=== PATIENT | female | born 1990 | race Caucasian/White ===

== ENCOUNTER 2018-05-30 11:31 | Outpatient (CLI) | payer OTHER ==
--- NOTE | 2018-05-30 11:39 | NUR ---
pt ambulated to OB unit for Rhogam administration. order sent to blood bank.
--- NOTE | 2018-05-30 12:25 | NUR ---
RHOGAM INJECTION GIVEN, PT TOLERATED WELL.
--- NOTE | 2018-05-30 12:28 | NUR ---
PT DISCHARGED TO HOME, AMBULATED OFF UNIT, PT VERBALIZES UNDERSTANDING OF FOLLOW UP CARE AND INSTRUCTIONS. NO DISTRESS NOTED.
== END 2018-05-30 12:28 | disposition home or self-care (01) ==
LOC: WSo 11:31
PROVIDERS: ATTEND Obstetrics & Gynecology
DX: Z31.82 Encounter for Rh incompatibility status (principal)
CPT/HCPCS: 96372

== ENCOUNTER 2018-08-20 11:09 | Inpatient (IN) | payer OTHER | END 2018-08-22 12:00 | disposition home or self-care (01) | LOC: LDRP 11:09 ==

== ENCOUNTER 2021-05-20 19:33 | Observation (INO) | payer BC, OTHER ==
[~2021-05-20] VITALS: Ht 160.2 cm; Wt 66.1 kg
[~2021-05-20 19:33] MED LIST: DOCU-143 PO; ESOM10SU PO; IBUP-1780 PO; LORA10TA76 PO; OXYC1TAB87 PO; PREN1TAB79 PO
--- NOTE | 2021-05-20 19:56 | ED Abdominal Pain ---
General Chief Complaint: Abdominal/GI Problems Stated Complaint: UPPER ABD/BACK PAIN Source of Information: Patient Exam Limitations: No Limitations (TYRON VALIENTE APRN) History of Present Illness Date Seen by Provider: May 20, 2021 Time Seen by Provider: 19:54 Initial Comments To ER by private vehicle with reports of right upper quadrant abdominal pain that radiates straight through to her back associated with intermittent nausea. No fever no chills. Symptoms began on Monday of this week 05/17/2021. She has been taking yare-zmz-clsfcxr Tums, Gas-X, Tylenol without any improvement in symptoms. She finally went and saw [facility] walk-in clinic today and had an ultrasound done and states that she was told that her gallbladder was full of stones. She is 13 weeks gestation. Timing/Duration: 3-4 Days Severity/Quality: Moderate Location: RUQ Radiation: No Radiation Activities at Onset: None Associated Symptoms: Nausea/Vomiting (TYRON VALIENTE APRN) Allergies and Home Medications Allergies Coded Allergies: No Known Drug Allergies (Unverified , 05/22/21) Patient Home Medication List Home Medication List Reviewed: Yes (TYRON VALIENTE APRN) Vit W-Ca,Fe,FA(<1 mg) ( Vitamins) 1 Each Tablet, 1 EACH PO DAILY, (Reported) Entered as Reported by: MICHELLE MCGOVERN on 08/20/181209 Last Action: Reviewed Discontinued Medications Docusate Sodium (Colace) 100 Mg Capsule, 100 MG PO BID Discontinued Reason: No Longer Taking Prescribed by: CESAR ALVARADO on 08/20/18 1435 Last Action: Discontinued Esomeprazole Magnesium (Nexium) 10 Mg Suspdr.pkt, 10 MG PO DAILY, (Reported) Discontinued Reason: No Longer Taking Entered as Reported by: MICHELLE MCGOVERN on 08/20/18 1210 Last Action: Discontinued Ibuprofen (Ibuprofen) 800 Mg Tablet, 800 MG PO Q6H PRN for PAIN Discontinued Reason: No Longer Taking Prescribed by: CESAR ALVARADO on 08/20/18 1435 Last Action: Discontinued Loratadine (Claritin) 10 Mg Tablet, 10 MG PO DAILY, (Reported) Discontinued Reason: No Longer Taking Entered as Reported by: MICHELLE MCGOVERN on 08/20/18 1210 Last Action: Discontinued Oxycodone HCl/Acetaminophen (Percocet 5-325 mg Tablet) 1 Each Tablet, 1 TAB PO Q4H Discontinued Reason: No Longer Taking Prescribed by: CESAR ALVARADO on 08/20/18 0015 Last Action: Discontinued Review of Systems Review of Systems Constitutional: see HPI; No chills, No fever EENTM: No Symptoms Reported Respiratory: No Symptoms Reported Cardiovascular: No Symptoms Reported Gastrointestinal: See HPI, Abdominal Pain; Denies Diarrhea; Nausea; Denies Vomiting Genitourinary: No Symptoms Reported Musculoskeletal: no symptoms reported Skin: no symptoms reported Psychiatric/Neurological: No Symptoms Reported Endocrine: No Symptoms Reported Hematologic/Lymphatic: No Symptoms Reported (TYRON VALIENTE APRN) Past Kzmptfm-Yaqsfy-Quvgly Hx Immunizations Up To Date PED Vaccines UTD: Yes (TYRON VALIENTE APRN) Seasonal Allergies Seasonal Allergies: Yes (TYRON VALIENTE APRN) Past Medical History Surgeries: Yes ([place] Teeth) Respiratory: No Cardiac: No Neurological: No Female Reproductive Disorders: Denies Sexually Transmitted Disease: No HIV/AIDS: No Genitourinary: No Gastrointestinal: Yes Gastroesophageal Reflux Musculoskeletal: No Endocrine: No HEENT: No Loss of Vision: Denies Hearing Impairment: Denies Cancer: No Psychosocial: No Integumentary: No Blood Disorders: No Adverse Reaction/Blood Tranf: No (TYRON VALIENTE APRN) Family Medical History CABG Grandparents (Maternal Grandfather) Cardiovascular disease Grandparents (Maternal Grandfather) Cataracts Grandparents (Maternal Grandmother) Completed stroke Grandparents (Maternal and Paternal Grandmothers) DVT 19 MOTHER Dementia Grandparents (Paternal Grandmother) Diabetes mellitus Grandparents (Maternal Grandfather) Hypercholesterolemia Grandparents (Maternal Grandfather) Hypertension Grandparents (Maternal Grandfather) Myocardial infarction Grandparents (Maternal Grandfather) Osteoporosis Grandparents (Paternal Grandmother) Parkinson's disease Grandparents (Paternal Grandmother) Respiratory disorder Grandparents (Maternal Grandmother-COPD) Physical Exam Vital Signs Vital Signs - First Documented 05/20/21 19:45 Temp 36.2 Pulse 71 Resp 14 B/P (MAP) 129/75 (93) Pulse Ox 99 O2 Delivery Room Air (RIYA VAUGHN MD) Vital Signs Capillary Refill : (TYRON VALIENTE APRN) Height/Weight/BMI Height: 5'3.00" Weight: 179lbs. 2.0oz. 81.033178xz; 31.7 BMI Method: General Appearance: WD/WN, no apparent distress Neck: non-tender, full range of motion Respiratory: normal breath sounds, no respiratory distress, no accessory muscle use Cardiovascular: regular rate, rhythm, no murmur Gastrointestinal: normal bowel sounds, soft, tenderness Extremities: normal range of motion, non-tender Back: normal inspection Neurologic/Psychiatric: alert, normal mood/affect, oriented x 3 Skin: normal color, warm/dry (TYRON VALIENTE APRN) Progress/Results/Core Measures Results/Orders Lab Results Laboratory Tests Test 05/20/21 19:50 Range/Units White Blood Count 13.1 H 4.3-11.0 10^3/uL Red Blood Count 3.75 L 3.80-5.11 10^6/uL Hemoglobin 11.2 L 11.5-16.0 g/dL Hematocrit 33 L 35-52 % Mean Corpuscular Volume 87 80-99 fL Mean Corpuscular Hemoglobin 30 25-34 pg Mean Corpuscular Hemoglobin Concent 35 32-36 g/dL Red Cell Distribution Width 11.6 10.0-14.5 % Platelet Count 269 130-400 10^3/uL Mean Platelet Volume 10.6 9.0-12.2 fL Immature Granulocyte % (Auto) 1 % Neutrophils (%) (Auto) 73 42-75 % Lymphocytes (%) (Auto) 19 12-44 % Monocytes (%) (Auto) 6 0-12 % Eosinophils (%) (Auto) 2 0-10 % Basophils (%) (Auto) 0 0-10 % Neutrophils # (Auto) 9.5 H 1.8-7.8 10^3/uL Lymphocytes # (Auto) 2.4 1.0-4.0 10^3/uL Monocytes # (Auto) 0.8 0.0-1.0 10^3/uL Eosinophils # (Auto) 0.3 0.0-0.3 10^3/uL Basophils # (Auto) 0.0 0.0-0.1 10^3/uL Immature Granulocyte # (Auto) 0.1 0.0-0.1 10^3/uL Sodium Level 136 135-145 MMOL/L Potassium Level 3.7 3.6-5.0 MMOL/L Chloride Level 102 98-107 MMOL/L Carbon Dioxide Level 22 21-32 MMOL/L Anion Gap 12 5-14 MMOL/L Blood Urea Nitrogen 6 L 7-18 MG/DL Creatinine 0.75 0.60-1.30 MG/DL Estimat Glomerular Filtration Rate 109 BUN/Creatinine Ratio 8 Glucose Level 95 70-105 MG/DL Calcium Level 9.6 8.5-10.1 MG/DL Corrected Calcium 9.7 8.5-10.1 MG/DL Total Bilirubin 2.2 H 0.1-1.0 MG/DL Aspartate Amino Transf (AST/SGOT) 324 H 5-34 U/L Alanine Aminotransferase (ALT/SGPT) 565 H 0-55 U/L Alkaline Phosphatase 95 40-136 U/L Total Protein 7.1 6.4-8.2 GM/DL Albumin 3.9 3.2-4.5 GM/DL Lipase 42889 H 8-78 U/L (RIYA VAUGHN MD) Vital Signs/I&O 05/20/21 05/20/21 19:45 21:25 Temp 36.2 Pulse 71 57 Resp 14 14 B/P (MAP) 129/75 (93) 111/69 Pulse Ox 99 99 O2 Delivery Room Air Room Air (RIYA VAUGHN MD) Departure Communication (Admissions) 0-I spoke with Dr. Lewis, will admit hydrate clear liquids orally, nausea medicine and pain medication. We will repeat labs in the morning and get a ga llbladder ultrasound here since we do not have access to view the gallbladder ultrasound at [facility] outpatient earlier today. (TYRON VALIENTE APRN) Impression Primary Impression: Symptomatic cholelithiasis Disposition: HOME, SELF-CARE Condition: Stable Admissions Decision to Admit Reason: Admit from ER (General) Decision to Admit/Date: May 20, 2021 Time/Decision to Admit Time: 22:10 (TYRON VALIENTE APRN) Departure-Patient Inst. Referrals: [facility] (PCP/Family) Primary Care Physician ATTENDING PHYSICIAN NOTE: I was physically present as attending physician in the emergency department during the care of this patient, but I was not directly involved in the decision making or delivery of care for this patient. (RIYA VAUGHN MD) TYRON VALIENTE APRN May 20, 2021 19:56 RIYA VAUGHN MD May 22, 2021 18:05
[2021-05-20] MEDS ORDERED: fentaNYL INJ 100 MCG/2 ML AMP IVP ONE ×2 (20:00→21:30)
[2021-05-20] MEDS ORDERED: ONDANSETRON 4 MG/2 ML (SDV) Z0FRAN IVP ONE (20:00)
[2021-05-20] MEDS ORDERED: LACTATED RINGERS 1,000 ML IV SCH (20:00)
[2021-05-20 20:16] LABS: BASOPHILS % (AUTO) 0 % (0-10); EOSINOPHILS # (AUTO) 0.3 10^3/uL (0.0-0.3); EOSINOPHILS % (AUTO) 2 % (0-10); HEMATOCRIT 33 % (35-52); HEMOGLOBIN 11.2 g/dL (11.5-16.0); LYMPHOCYTES # (AUTO) 2.4 10^3/uL (1.0-4.0); LYMPHOCYTES % (AUTO) 19 % (12-44); MEAN CORPUSCULAR HEMOGLOBIN 30 pg (25-34); MEAN CORPUSCULAR HGB CONC 35 g/dL (32-36); MEAN CORPUSCULAR VOLUME 87 fL (80-99); MEAN PLATELET VOLUME 10.6 fL (9.0-12.2); MONOCYTES # (AUTO) 0.8 10^3/uL (0.0-1.0); MONOCYTES % (AUTO) 6 % (0-12); NEUTROPHILS # (AUTO) 9.5 10^3/uL (1.8-7.8); NEUTROPHILS % (AUTO) 73 % (42-75); PLATELET COUNT 269 10^3/uL (130-400); WHITE BLOOD COUNT 13.1 10^3/uL (4.3-11.0)
[2021-05-20 20:18] LABS: ALBUMIN 3.9 GM/DL (3.2-4.5)
[2021-05-20 20:19] LABS: CALCIUM 9.6 MG/DL (8.5-10.1)
[2021-05-20 20:21] LABS: TOTAL PROTEIN 7.1 GM/DL (6.4-8.2)
[2021-05-20 20:22] LABS: BILIRUBIN,TOTAL 2.2 MG/DL (0.1-1.0)
[2021-05-20 20:24] LABS: CREATININE SERUM 0.75 MG/DL (0.60-1.30)
[2021-05-20 20:47] LABS: POTASSIUM 3.7 MMOL/L (3.6-5.0)
[2021-05-20] MEDS ORDERED: cefTRIAXone 1 GM PRE-MIX 50 ML IV ONE (21:15)
[2021-05-20] MEDS ORDERED: fentaNYL INJ 100 MCG/2 ML AMP IV PRN (22:45)
[2021-05-20] MEDS ORDERED: ONDANSETRON 4 MG/2 ML (SDV) Z0FRAN IV PRN (22:45)
[2021-05-20 23:05] VITALS: BP 111/55
[2021-05-20] MEDS: LACTATED RINGERS 1,000 ML IV SCH (23:28)
[2021-05-21 04:38] VITALS: BP 104/69
[2021-05-21 05:50] LABS: BASOPHILS % (AUTO) 0 % (0-10); EOSINOPHILS # (AUTO) 0.3 10^3/uL (0.0-0.3); EOSINOPHILS % (AUTO) 4 % (0-10); HEMATOCRIT 28 % (35-52); HEMOGLOBIN 9.6 g/dL (11.5-16.0); LYMPHOCYTES # (AUTO) 1.7 10^3/uL (1.0-4.0); LYMPHOCYTES % (AUTO) 20 % (12-44); MEAN CORPUSCULAR HEMOGLOBIN 30 pg (25-34); MEAN CORPUSCULAR HGB CONC 35 g/dL (32-36); MEAN CORPUSCULAR VOLUME 87 fL (80-99); MEAN PLATELET VOLUME 10.7 fL (9.0-12.2); MONOCYTES # (AUTO) 0.5 10^3/uL (0.0-1.0); MONOCYTES % (AUTO) 6 % (0-12); NEUTROPHILS % (AUTO) 70 % (42-75); PLATELET COUNT 221 10^3/uL (130-400); WHITE BLOOD COUNT 8.5 10^3/uL (4.3-11.0)
[2021-05-21 06:11] LABS: ALBUMIN 3.1 GM/DL (3.2-4.5); BILIRUBIN,TOTAL 2.6 MG/DL (0.1-1.0); CALCIUM 8.5 MG/DL (8.5-10.1); CREATININE SERUM 0.66 MG/DL (0.60-1.30); POTASSIUM 3.5 MMOL/L (3.6-5.0); TOTAL PROTEIN 5.5 GM/DL (6.4-8.2)
[2021-05-21] MEDS: LACTATED RINGERS 1,000 ML IV SCH (07:46)
[2021-05-21 08:00] VITALS: BP 91/50
[2021-05-21] MEDS ORDERED: FLU QUADRIvalent (3YOA+) 60 mcg/0.5 ml 2021-22(AFLURIA) IM ONE (08:00)
--- NOTE | 2021-05-21 09:25 | Diagnostic Imaging Report ---
PROCEDURE: US Gallbladder. TECHNIQUE: Multiple real-time grayscale images were obtained over the right upper quadrant in various projections. INDICATION: Right upper quadrant pain Liver parenchyma is homogeneous with normal echotexture. The portal vein is patent with hepatopetal flow. The gallbladder wall is thickened. There are several stones in the gallbladder. Common duct is not dilated. The pancreas appears normal. Aorta and IVC appear normal. Right kidney measures 10.5 cm in length and appears normal. There is no ascites. IMPRESSION: Cholecystolithiasis with a thickened gallbladder wall. Dictated by: Dictated on workstation # [id number]
[2021-05-21] MEDS ORDERED: ACETAMINOPHEN 500 MG TAB (TYLENOL) PO PRN (09:45)
[2021-05-21 12:00] VITALS: BP 106/55
--- NOTE | 2021-05-21 12:09 | Consultation - Surgery ---
History of Present Illness History of Present Illness Patient Consulted On(neela/time) 05/21/21 12:00 Time Seen by Provider: 09:21 History of Present Illness Surgery asked to admit regarding Abdominal pain, cholelithiasis. HPI per ED: To ER by private vehicle with reports of right upper quadrant a bdominal pain that radiates straight through to her back associated with intermittent nausea. No fever no chills. Symptoms began on Monday of this week 05/17/2021. She has been taking wnei-ojg-dliegcs Tums, Gas-X, Tylenol without any improvement in symptoms. She finally went and saw [facility] walk-in clinic today and had an ultrasound done and states that she was told that her gallbladder was full of stones. She is 13 weeks gestation. When I spoke to pt this am she states she still has pain but it is better than yesterday. She states that she has been having this pain for at least 6 years, "but I always thought it was my heartburn". Usually it only lasted a couple hours at the most, but this time it hasn't gone away since Monday. At its worst it was 10 out of 10. Usually associated with fatty foods, "I gave up ground beef and that seemed to help, this time it happened aft er broccoli cheddar soup". She will be 14 weeks on Monday. Allergies and Home Medications Allergies Coded Allergies: No Known Drug Allergies (Unverified , 08/20/18) Patient Home Medication List Home Medication List Reviewed: Yes Vit W-Ca,Fe,FA(<1 mg) ( Vitamins) 1 Each Tablet, 1 EACH PO DAILY, (Reported) Entered as Reported by: MICHELLE MCGOVERN on 08/20/18 1210 Last Action: Reviewed Discontinued Medications Docusate Sodium (Colace) 100 Mg Capsule, 100 MG PO BID Discontinued Reason: No Longer Taking Prescribed by: CESAR ALVARADO on 08/20/18 1435 Last Action: Discontinued Esomeprazole Magnesium (Nexium) 10 Mg Suspdr.pkt, 10 MG PO DAILY, (Reported) Discontinued Reason: No Longer Taking Entered as Reported by: MICHELLE MCGOVERN on 08/20/18 1210 Last Action: Discontinued Ibuprofen (Ibuprofen) 800 Mg Tablet, 800 MG PO Q6H PRN for PAIN Discontinued Reason: No Longer Taking Prescribed by: CESAR ALVARADO on 08/20/18 1435 Last Action: Discontinued Loratadine (Claritin) 10 Mg Tablet, 10 MG PO DAILY, (Reported) Discontinued Reason: No Longer Taking Entered as Reported by: MICHELLE MCGOVERN on 08/20/18 1210 Last Action: Discontinued Oxycodone HCl/Acetaminophen (Percocet 5-325 mg Tablet) 1 Each Tablet, 1 TAB PO Q4H Discontinued Reason: No Longer Taking Prescribed by: CESAR ALVARADO on 08/20/18 1435 Last Action: Discontinued Past Xmanxqv-Unmitw-Goqcib Hx Patient Social History Smoking Status: Never a Smoker Recent Hopitalizations: No Alcohol Use?: No Have you traveled recently?: No Immunizations Up To Date PED Vaccines UTD: Yes Seasonal Allergies Seasonal Allergies: Yes Surgeries History of Surgeries: Yes ([place] Teeth) Respiratory History of Respiratory Disorde: No Cardiovascular History of Cardiac Disorders: No Neurological History of Neurological Disord: No Reproductive System Sexually Transmitted Disease: No HIV/AIDS: No Female Reproductive Disorders: Denies Genitourinary History of Genitourinary Disor: No Gastrointestinal History of Gastrointestinal Di: Yes Gastrointestinal Disorders: Gastroesophageal Reflux Musculoskeletal History of Musculoskeletal Dis: No Endocrine History of Endocrine Disorders: No HEENT History of HEENT Disorders: No Loss of Vision: Denies Hearing Impairment: Denies Cancer History of Cancer: No Psychosocial History of Psychiatric Problem: No Integumentary History of Skin or Integumenta: No Blood Transfusions History of Blood Disorders: No Adverse Reaction to a Blood Tr: No Family Medical History Significant Family History: CAD Over 55 Years Old, COPD, Diabetes Family Medial History: CABG Grandparents (Maternal Grandfather) Cardiovascular disease Grandparents (Maternal Grandfather) Cataracts Grandparents (Maternal Grandmother) Completed stroke Grandparents (Maternal and Paternal Grandmothers) DVT 19 MOTHER Dementia Grandparents (Paternal Grandmother) Diabetes mellitus Grandparents (Maternal Grandfather) Hypercholesterolemia Grandparents (Maternal Grandfather) Hypertension Grandparents (Maternal Grandfather) Myocardial infarction Grandparents (Maternal Grandfather) Osteoporosis Grandparents (Paternal Grandmother) Parkinson's disease Grandparents (Paternal Grandmother) Respiratory disorder Grandparents (Maternal Grandmother-COPD) Review of Systems-General Constitutional: No chills, No diaphoresis EENTM: No blurred vision, No double vision, No mouth swelling, No epistaxis Respiratory: No cough, No dyspnea on exertion Cardiovascular: No chest pain, No edema, No palpitations Gastrointestinal: abdominal pain, heartburn; No jaundice; nausea; No vomiting Genitourinary: No dysuria, No frequency, No hematuria Musculoskeletal: No joint pain, No joint swelling, No muscle pain Skin: No change in color, No change in hair/nails Psychiatric/Neurological: Denies Anxiety, Denies Depressed, Denies Seizure, Denies Tremors Physical Exam-General Problems Physical Exam Vital Signs Vital Signs - First Documented 05/20/21 19:45 Temp 36.2 Pulse 71 Resp 14 B/P (MAP) 129/75 (93) Pulse Ox 99 O2 Delivery Room Air Capillary Refill : Less Than 3 Seconds General Appearance: WD/WN, no apparent distress Eyes: Bilateral Eye PERRL, Bilateral Eye EOMI HEENT: pharynx normal; No scleral icterus (R), No scleral icterus (L) Neck: non-tender, full range of motion, supple Respiratory: chest non-tender, lungs clear, normal breath sounds, no respiratory distress, no accessory muscle use Cardiovascular: regular rate, rhythm, no murmur Gastrointestinal: soft, no organomegaly, tenderness (RUQ and epigastric) Rectal: deferred Back: no CVA tenderness, no vertebral tenderness Extremities: no pedal edema, no calf tenderness, normal capillary refill Neurologic/Psychiatric: media relations director II-XII nml as tested, no motor/sensory deficits, alert, normal mood/affect, oriented x 3 Skin: normal color, warm/dry Lymphatic: no adenopathy (neck, axilla or groin) Data Review Labs Laboratory Tests 05/20/21 19:50: White Blood Count 13.1H, Red Blood Count 3.75L, Hemoglobin 11.2L, Hematocrit 33L , Mean Corpuscular Volume 87, Mean Corpuscular Hemoglobin 30, Mean Corpuscular Hemoglobin Concent 35, Red Cell Distribution Width 11.6, Platelet Count 269, Mean Platelet Volume 10.6, Immature Granulocyte % (Auto) 1, Neutrophils (%) (Auto) 73, Lymphocytes (%) (Auto) 19, Monocytes (%) (Auto) 6, Eosinophils (%) (Auto) 2, Basophils (%) (Auto) 0, Neutrophils # (Auto) 9.5H, Lymphocytes # (Auto) 2.4, Monocytes # (Auto) 0.8, Eosinophils # (Auto) 0.3, Basophils # (Auto) 0.0, Immature Granulocyte # (Auto) 0.1, Sodium Level 136, Potassium Level 3.7, Chloride Level 102, Carbon Dioxide Level 22, Anion Gap 12, Blood Urea Nitrogen 6L, Creatinine 0.75, Estimat Glomerular Filtration Rate 109, BUN/Creatinine Ratio 8, Glucose Level 95, Calcium Level 9.6, Corrected Calcium 9.7, Total Bilirubin 2.2H, Aspartate Amino Transf (AST/SGOT) 324H, Alanine Aminotransferase (ALT/SGPT) 565H, Alkaline Phosphatase 95, Total Protein 7.1, Albumin 3.9, Lipase 13851A 05/21/21 05:30: White Blood Count 8.5, Red Blood Count 3.19L, Hemoglobin 9.6L, Hematocrit 28L, Mean Corpuscular Volume 87, Mean Corpuscular Hemoglobin 30, Mean Corpuscular Hemoglobin Concent 35, Red Cell Distribution Width 11.8, Platelet Count 221, Mean Platelet Volume 10.7, Immature Granulocyte % (Auto) 0, Neutrophils (%) (Auto) 70, Lymphocytes (%) (Auto) 20, Monocytes (%) (Auto) 6, Eosinophils (%) (Auto) 4, Basophils (%) (Auto) 0, Neutrophils # (Auto) 6.0, Lymphocytes # (Auto) 1.7, Monocytes # (Auto) 0.5, Eosinophils # (Auto) 0.3, Basophils # (Auto) 0.0, Immature Granulocyte # (Auto) 0.0 05/21/21 05:35: Sodium Level 137, Potassium Level 3.5L, Chloride Level 105, Carbon Dioxide Level 21, Anion Gap 11, Blood Urea Nitrogen 5L, Creatinine 0.66, Estimat Glomerular Filtration Rate 120, BUN/Creatinine Ratio 8, Glucose Level 84, Calcium Level 8.5, Corrected Calcium 9.2, Total Bilirubin 2.6H, Aspartate Amino Transf (AST/SGOT) 212H, Alanine Aminotransferase (ALT/SGPT) 476H, Alkaline Phosphatase 90, Total Protein 5.5L, Albumin 3.1L, Lipase 3530H Radiology Date of Exam:05/21/21 US GALLBLADDER [id number] PROCEDURE: US Gallbladder. TECHNIQUE: Multiple real-time grayscale images were obtained over the right upper quadrant in various projections. INDICATION: Right upper quadrant pain Liver parenchyma is homogeneous with normal echotexture. The portal vein is patent with hepatopetal flow. The gallbladder wall is thickened. There are several stones in the gallbladder. Common duct is not dilated. The pancreas appears normal. Aorta and IVC appear normal. Right kidney measures 10.5 cm in length and appears normal. There is no ascites. IMPRESSION: Cholecystolithiasis with a thickened gallbladder wall. Dictated by: Dictated on workstation # [id number] Dict: 05/21/2120 Trans: 05/21/21 1134 CVB [id number] Interpreted by: ROSITA MARTINEZ MD Electronically signed by: ROSITA MARTINEZ MD 05/21/21 1134 Assessment/Plan Assessment/Plan Assessment/Plan Acute Cholescystitis with Cholelithiasis with possible Choledochalithiasis Acute Pancreatitis - possibly secondary to above Elevated LFTs - could be due to above or I had a long discussion with the pt going over her findings, Labs and her US (which I reviewed myself). Her Lipase came down today as did most of her LFTs except Bilirubin which was slightly up. She is which complicates the situation. Ideally we would wait until after she gives or at least until she is in the second trimester. She is basically in the second trimester, but would probably wait until she is at least 14 weeks (which is Monday). I talked to her about risks of surgery during 1st and 3rd trimester, second trimester is the least "riskiest"; but that doesn't mean without risks. I asked her if she could wait until after she delivered and she said no; "pain has never been like this or lasted this long". I went over normal risks and complications of surgery with pt not limited to pain, bleeding, infection, scar, damage to bowel or bile duct and need for further procedure. We talked about placing lead shield over abdomen to shoot Cholangiogram and possible need for ERCP. We will start some clears to see if she can tolerate that without abdominal pain and if she can and since her Lipase came down; probably can send home and come in Monday to do this as outpt. Her other option would be to stay in the hospital until Monday. She wanted to try eating and then would be NPO after midnight on Monday to come in for surgery Monday. All questions answered to her satisfaction. VANIA DALAL DO May 21, 2021 12:09
--- NOTE | 2021-05-21 12:27 | Discharge Inst-Surgical ---
Discharge Inst-Surgical Depart Medication/Instructions New, Converted or Re-Newed RX: Other (Use Tylenol for pain) Patient Instructions NPO after midnight on Tuesday 05/23 for planned surgery on Wednesday 05/24. Please be at hospital at 10:30 am on Monday. Activity Activity as Tolerated: Yes Diet Discharge Diet: Avoid Fatty Foods, Low Fat/Low Cholesterol Diet After 24 Hours: Clear Liquid if Nauseous Symptoms to Report to Physicia: Appetite Changes, Fever Over 101 Degrees F, Heart Beat Irreg/Pounding, Shortness of Breath If Any Problems/Questions/Issu: Contact Your Physician, Go to Emergency Room Skin/Wound Care Infection Signs and Symptoms: Temperature Above 101 F VANIA DALAL DO May 21, 2021 12:27
[2021-05-24] MEDS ORDERED: ACHD5005 PO (11:04)
--- NOTE | 2021-05-31 10:35 | Physician Query-Final Dx ---
SABINA SIDHU 05/31/21 1035: Final Diagnosis Give Final Diagnosis Please give Final Diagnosis ADRIANA05/31/21 1433: ASBINA SIDHU May 31, 2021 10:35 ADRIANAAprMay 31, 2021 14:33
== END 2021-05-21 12:24 | disposition home or self-care (01) ==
LOC: EDUNIT# 19:33 → ER 19:38 → 4TH 22:00 → UNDOADMOB 22:00 → 4TH 22:30 → UNDODISOB 05-21 14:15
PROVIDERS: ADMIT Surgery; ATTEND Surgery
DX: K80.00 Calculus of gallbladder with acute cholecystitis without obstruction (principal); K85.90 Acute pancreatitis without necrosis or infection, unspecified; R79.89 Other specified abnormal findings of blood chemistry
CPT/HCPCS: 76705; 80053 ×2; 83690 ×2; 85025 ×2; 96361; 96365; 96375; 96376; 99284; G0378; 36415

== ENCOUNTER 2021-05-21 14:43 | Outpatient (CLI) | payer BC ==
[~2021-05-21] VITALS: Ht 157.5 cm; Wt 65.4 kg
[2021-05-24] MEDS ORDERED: ACHD5005 PO (11:04)
== END 2021-05-22 07:07 | disposition home or self-care (01) ==
LOC: PREOP 14:43
PROVIDERS: ATTEND Surgery
DX: Z01.818 Encounter for other preprocedural examination (principal)

== ENCOUNTER 2021-05-24 09:15 | Day surgery (SDC) | payer BC ==
[~2021-05-24] VITALS: Ht 157.5 cm; Wt 65.4 kg
[2021-05-24] VITALS (12 sets, daily range): BP systolic 107–116; BP diastolic 54–81
[2021-05-24] MEDS ORDERED: LIDOCAINE/EPI 1%-1:200,000 (XYLOCAINE) 30 ML VIAL ONE (09:28)
[2021-05-24] MEDS ORDERED: ceFAZolin 2 GM IV Premixed 50 ML IV ONE (09:30)
[2021-05-24] MEDS ORDERED: fentaNYL INJ 100 MCG/2 ML AMP ONE ×2 (09:51→11:19)
[2021-05-24] MEDS ORDERED: proPOfol 200 MG/20 ML (DIPRIVAN) VIAL IV ONE (09:51)
[2021-05-24] MEDS ORDERED: LIDOCAINE PF 2% 5 ML (XYLOCAINE) VIAL ONE (09:51)
[2021-05-24] MEDS ORDERED: ONDANSETRON 4 MG/2 ML (SDV) Z0FRAN ONE ×2 (09:51→12:40)
--- NOTE | 2021-05-24 09:55 | Progress Note-Pre Operative ---
Pre-Operative Progress Note H&P Reviewed The H&P was reviewed, patient examined and no changes noted. Time Seen by Provider: 09:52 Date H&P Reviewed: May 24, 2021 Time H&P Reviewed: 09:52 Pre-Operative Diagnosis: Awa/Awa possible choledochalithiasis VANIA DALAL DO May 24, 2021 09:55
[2021-05-24] MEDS: LACTATED RINGERS 1,000 ML IV PRN ×2 (10:10→10:31)
[2021-05-24] MEDS ORDERED: ROCURONIUM 50 MG/5 ML (ZEMURON) VIAL IV ONE (10:30)
[2021-05-24] MEDS ORDERED: SEVOFLURANE (ULTANE) 15 ML INHAL SOLN ONE (11:04)
[2021-05-24] MEDS ORDERED: ACHD5005 PO (11:04)
--- NOTE | 2021-05-24 11:04 | Progress Note-Post Operative ---
Post-Operative Progess Note Surgeon (s)/Cut Pressman (s) Surgeon VANIA DALAL DO Cut Pressman: Ketan Pre-Operative Diagnosis Awa/Awa possible choledochalithiasis Post-Operative Diagnosis Chronic Cholelithiasis with cholecystitis Procedure & Operative Findings Date of Procedure 05/24/21 Procedure Performed/Findings PROCEDURE: Laparoscopic cholecystectomy with intraoperative cholangiogram. COMPLICATIONS: None. PROCEDURE: The patient was taken to the operating suite and was prepped and draped in sterile fashion. We placed a lead apron above and below the patient; just below umbilicus. A surgical pause was performed. Just superior to the umbilicus, a 12 mm incision was made. Dissection was taken down to the fascia, which was then scored and grasped with a Grazyna and the abdomen was then entered. A 0 Vicryl suture was placed in a [id number] fashion and a Maki trocar was placed and secured. Pneumoperitoneum was achieved. A 5mm trochar place in the subxyphoid and 2 in the right upper quadrant. Then took picture of the gallbladder which looked a little red and of the Uterus. The gallbladder was then grasped at the fundus and taken in the superior direction. Next, grasped at Perales;s pouch and pulled inferior and laterally. The cystic duct and cystic artery were then dissected out. Clip was placed on the distal portion of the cystic duct which was then partially transected. An arrow catheter was inserted into the duct. The cholangiogram was then performed. No filing defects and contrast made its way into the duodenum. Catheter removed. Clips were placed on proximal portion of the cystic duct and then the duct was then transected. Clips were placed along the proximal and distal portion of the cystic artery which was then transected. Hook cautery was used to dissect the gallbladder from the gallbladder fossa achieving hemostasis. The gallbladder was placed in an Endobag and removed through the 12 mm trocar site. The abdomen was then reinspected. Copious amounts of irrigation were used to irrigate the abdomen and there were no signs of active bleeding. Hemostasis had been achieved. The 12 mm fascial defect was then closed with 0 Vicryl suture that had been placed in a [id number] fashion. The abdomen was then desufflated, the trocars were removed. The abdomen was then washed and dried. The skin was then closed using 4-0 Monocryl in a subcuticular fashion. The abdomen was washed and dried and Skin Affix was place over incisions. Patient tolerated the procedure well without any complications and was taken to the recovery room in stable condition. Dr. Aceves assisted on this case helping to make incisions, close incisions, identify anatomy and hold anatomy out of the way. Anesthesia Type GET Estimated Blood Loss Estimated blood loss (mL): scant Specimens/Packing Specimens Removed GB and contents VANIA DALAL DO May 24, 2021 11:04
--- NOTE | 2021-05-24 11:06 | Discharge Inst-Surgical ---
Discharge Inst-Surgical Depart Medication/Instructions New, Converted or Re-Newed RX: Transmitted to Pharmacy Patient Instructions Follow up Appt: Make appointment for 1 week. [phone] Instructions: No lifting greater than 20 pounds. No strenuous activity. May shower in 24 hours, no tub bath or soaking. Use incentive spirometer at home as directed. No Smoking Skin/Wound Care: May remove bandages in am. You need to leave the Dermabond on incision it will fall off on it's own. Symptoms to Report: Appetite Changes, Extremity Discoloration, Numbness/Tingling, Swelling Increased, Bleeding Excessive, Eyesight Changes, Pain Increased, Urine Color Change, Constipation(Persistent), Fever over 101 degree F, Pain/Pressure in chest, Urinating Difficulty, Cough Up/Vomit Blood, Heart Beat Irreg/Pounding, Pain/Pressure in jaw, Cramps in feet or legs, Lightheadedness, Pain/Pressure in shoulder, Diarrhea(Persistent), Memory Changes Suddenly, Questions/Concerns, Weight gain consecutive days, Dizziness/Fainting, Nausea/Vomiting, Shortness of Breath, Weight gain over 2 pounds If questions or concerns contact your physician Or seek help at emergency department. Activity Activity as Tolerated: Yes Activity Instructions: Avoid Stress to Incision Driving Instructions: No Driving/Refer to Diet Discharge Diet: Avoid Fatty Foods, Low Fat/Low Cholesterol Diet After 24 Hours: Clear Liquid if Nauseous If Any Problems/Questions/Issu: Contact Your Physician, Go to Emergency Room Skin/Wound Care Infection Signs and Symptoms: Increased Redness, Foul Odor of Wound, Increased Drainage, Skin Itchy or Has a Rash, Increased Swelling, Temperature Above 101 F Wound Care Comment: Heating pad to shoulder or neck tonight for pain Bathing Instructions: Shower Stitches/[place]/Dermabond Dis: Dermabond Ice Pack: Ice On and Off Site (as needed for pain) VANIA DALAL DO May 24, 2021 11:06
[2021-05-24] MEDS ORDERED: fentaNYL INJ 100 MCG/2 ML AMP IVP ONE (11:15)
[2021-05-24] MEDS ORDERED: ONDANSETRON 4 MG/2 ML (SDV) Z0FRAN IVP PRN (11:15)
[2021-05-24] MEDS ORDERED: ONDANSETRON 4 MG/2 ML (SDV) Z0FRAN IVP ONE (12:45)
--- NOTE | 2021-05-24 13:24 | Diagnostic Imaging Report ---
INDICATION: Fluoroscopy during intraoperative cholangiogram. Fluoroscopy was provided in the OR during intraoperative cholangiogram. 11 seconds of four-story time was utilized. 52 images were obtained. Images demonstrate contrast being injected via the cystic duct remnant. The visualized intrahepatic and extrahepatic bile ducts are normal caliber. No filling defects are seen to suggest retained stone. There is contrast flowing into the duodenum. IMPRESSION: Fluoroscopy during intraoperative cholangiogram. Dictated by: Dictated on workstation # [id number]
[2021-05-25] MEDS ORDERED: ACHD5005 PO (11:51)
== END 2021-05-24 14:06 | disposition home or self-care (01) ==
LOC: SDC 09:15
PROVIDERS: ATTEND Surgery
DX: K80.12 Calculus of gallbladder with acute and chronic cholecystitis without obstruction (principal); K85.90 Acute pancreatitis without necrosis or infection, unspecified; R79.89 Other specified abnormal findings of blood chemistry
CPT/HCPCS: 76000; 87081; 88304

== ENCOUNTER 2021-05-24 23:37 | Inpatient (IN) | payer BC ==
[~2021-05-24] VITALS: Ht 160 cm; Wt 69.1 kg
[~2021-05-24 23:37] MED LIST changes: +ACHD5005 PO
--- NOTE | 2021-05-24 23:53 | ED Syncope ---
General Stated Complaint: SYNCOPE Source of Information: Patient, EMS Exam Limitations: No Limitations History of Present Illness Date Seen by Provider: May 24, 2021 Time Seen by Provider: 23:31 Initial Comments Patient to ER by EMS from home with chief complaint that she had a syncopal episode. Blood pressure 77/40 on EMS arrival. The end established an IV and started a liter of fluids at about 300 and by the time they arrived to the ER. Patient has been having problems with biliary colic recently and was scheduled by Dr. Dalal today for an outpatient cholecystectomy. She was doing well and when she went home her family was helping her out of the car and that is when she passed out. She took a hydrocodone 5 x 325 3-1/2 hours ago. No nausea fevers chills dysuria. She has never had abdominal surgery before. She is a at 14 weeks and [address] Mejia. [facility] for primary care. No other significant medical history. No history of vasovagal syncopes. No fevers chil ls cough shortness of air. No problems with the thus far. She has not passed any gas or bowel movement today since the surgery. Rates her pain as a 4 out of 10, tolerable as long as she lay still. Family said that they witnessed when she passed out she had about 7 to 10 seconds of thrashing about seizure-like activity. She does not have a history of epilepsy. Allergies and Home Medications Allergies Coded Allergies: No Known Drug Allergies (Unverified , 05/22/21) Patient Home Medication List Home Medication List Reviewed: Yes Hydrocodone/Acetaminophen (Hydrocodone-Acetamin 5-325 mg) 1 Each Tablet, 1 EA PO Q8H PRN for PAIN-MODERATE (5-7), (Reported) Entered as Reported by: SHYLA RODRIGUES on 05/25/21 1151 Last Action: Reviewed Vit W-Ca,Fe,FA(<1 mg) ( Vitamins) 1 Each Tablet, 1 EACH PO DAILY, (Reported) Entered as Reported by: MICHELLE MCGOVERN on 08/20/18 1210 Last Action: Reviewed Discontinued Medications Hydrocodone Bit/Acetaminophen (HYDROcodone/APAP 5 MG/325 MG TAB) 1 Tab Tab, 1 TAB PO Q8H PRN for PAIN-MODERATE (5-7) Discontinued Reason: No Longer Taking Prescribed by: VANIA DALAL on 05/24/21 1105 Last Action: Discontinued Review of Systems Constitutional: No chills, No diaphoresis EENTM: No ear pain, No eye pain Respiratory: No cough, No phlegm Cardiovascular: No chest pain, No palpitations Gastrointestinal: abdominal pain; No constipation, No diarrhea, No nausea, No vomiting Genitourinary: No discharge, No dysuria, No frequency, No hematuria : Yes Expected Date of Delivery: Nov 21, 2021 Control/STD Prophylaxis: None Musculoskeletal: No back pain, No joint pain Past [id number]-[id number]-Supzmf Hx Patient Social History Tobacco Use?: No Use of E-Cig and/or Vaping dev: No Substance use?: No Alcohol Use?: No Immunizations Up To Date PED Vaccines UTD: Yes First/Initial COVID19 Vaccinat: 08/12 Second COVID19 Vaccination Ortiz: 09/11 Third COVID19 Vaccination Date: 05/15 Seasonal Allergies Seasonal Allergies: Yes Past Medical History Surgery/Hospitalization HX: Denies Surgeries: Yes ([facility]) Respiratory: No Currently Using CPAP: No Currently Using BIPAP: No Cardiac: No Neurological: No Female Reproductive Disorders: Denies Sexually Transmitted Disease: No HIV/AIDS: No Genitourinary: No Gastrointestinal: Yes Gastroesophageal Reflux Musculoskeletal: No Endocrine: No HEENT: No Loss of Vision: Denies Hearing Impairment: Denies Cancer: No Psychosocial: No Integumentary: No Blood Disorders: No Adverse Reaction/Blood Tranf: No Family Medical History CABG Grandparents (Maternal Grandfather) Cardiovascular disease Grandparents (Maternal Grandfather) Cataracts Grandparents (Maternal Grandmother) Completed stroke Grandparents (Maternal and Paternal Grandmothers) DVT 19 MOTHER Dementia Grandparents (Paternal Grandmother) Diabetes mellitus Grandparents (Maternal Grandfather) Hypercholesterolemia Grandparents (Maternal Grandfather) Hypertension Grandparents (Maternal Grandfather) Myocardial infarction Grandparents (Maternal Grandfather) Osteoporosis Grandparents (Paternal Grandmother) Parkinson's disease Grandparents (Paternal Grandmother) Respiratory disorder Grandparents (Maternal Grandmother-COPD) CAD Over 55 Years Old, COPD, Diabetes Physical Exam Vital Signs Vital Signs - First Documented 05/24/21 23:38 Temp 37.2 Pulse 97 Resp 18 B/P (MAP) 100/59 (73) Pulse Ox 100 O2 Delivery Room Air Capillary Refill : Height, Weight, BMI Height: 5'3.00" Weight: 179lbs. 2.0oz. 81.987801qv; 26.36 BMI Method: General Appearance: WD/WN, Moderate Distress HEENT: PERRL/EOMI, TMs Normal, Normal ENT Inspection, Pharynx Normal; No Moist Mucous Membranes Neck: Full Range of Motion, Normal Inspection Cardiovascular: Regular Rate, Rhythm, No Edema, Normal Peripheral Pulses Respiratory: Lungs Clear, Normal Breath Sounds, No Accessory Muscle Use, No Respiratory Distress Gastrointestinal: Normal Bowel Sounds, No Organomegaly, Soft Extremities: Normal Capillary Refill, Normal Inspection, No Pedal Edema Neurologic/Psychiatric: Alert, Oriented x3, Normal Mood/Affect Cranial Nerves: Normal Hearing, Normal Speech, PERRL Skin: Normal Color, Warm/Dry Focused Exam Lactate Level 05/24/21 23:59: Lactic Acid Level 4.12*H Lactic Acid Level Laboratory Tests Test 05/24/21 23:59 Lactic Acid Level 4.12 MMOL/L (0.50-2.00) *H Progress/Results/Core Measures Results/Orders Lab Results Laboratory Tests Test 05/24/21 23:46 05/24/21 23:59 Range/Units White Blood Count 33.5 *H 4.3-11.0 10^3/uL Red Blood Count 2.86 L 3.80-5.11 10^6/uL Hemoglobin 8.7 L 11.5-16.0 g/dL Hematocrit 26 L 35-52 % Mean Corpuscular Volume 91 80-99 fL Mean Corpuscular Hemoglobin 30 25-34 pg Mean Corpuscular Hemoglobin Concent 34 32-36 g/dL Red Cell Distribution Width 11.9 10.0-14.5 % Platelet Count 303 130-400 10^3/uL Mean Platelet Volume 11.4 9.0-12.2 fL Immature Granulocyte % (Auto) 1 % Neutrophils (%) (Auto) 89 H 42-75 % Lymphocytes (%) (Auto) 7 L 12-44 % Monocytes (%) (Auto) 3 0-12 % Eosinophils (%) (Auto) 0 0-10 % Basophils (%) (Auto) 0 0-10 % Neutrophils # (Auto) 29.9 H 1.8-7.8 10^3/uL Lymphocytes # (Auto) 2.4 1.0-4.0 10^3/uL Monocytes # (Auto) 0.8 0.0-1.0 10^3/uL Eosinophils # (Auto) 0.0 0.0-0.3 10^3/uL Basophils # (Auto) 0.1 0.0-0.1 10^3/uL Immature Granulocyte # (Auto) 0.3 H 0.0-0.1 10^3/uL Neutrophils % (Manual) 82 % Lymphocytes % (Manual) 9 % Monocytes % (Manual) 1 % Band Neutrophils 5 % Atypical Lymphocytes 3 % Clumped Platelets MODERATE Blood Morphology Comment NORMAL Sodium Level 134 L 135-145 MMOL/L Potassium Level 3.9 3.6-5.0 MMOL/L Chloride Level 105 98-107 MMOL/L Carbon Dioxide Level 16 L 21-32 MMOL/L Anion Gap 13 5-14 MMOL/L Blood Urea Nitrogen 5 L 7-18 MG/DL Creatinine 0.76 0.60-1.30 MG/DL Estimat Glomerular Filtration Rate 107 BUN/Creatinine Ratio 7 Glucose Level 241 H 70-105 MG/DL Calcium Level 8.0 L 8.5-10.1 MG/DL Corrected Calcium 8.6 8.5-10.1 MG/DL Magnesium Level 1.8 1.6-2.4 MG/DL Total Bilirubin 0.4 0.1-1.0 MG/DL Aspartate Amino Transf (AST/SGOT) 46 H 5-34 U/L Alanine Aminotransferase (ALT/SGPT) 180 H 0-55 U/L Alkaline Phosphatase 94 40-136 U/L Troponin I < 0.028 <0.028 NG/ML C-Reactive Protein High Sensitivity 0.25 0.00-0.50 MG/DL B-Type Natriuretic Peptide 91.8 <100.0 PG/ML Total Protein 5.9 L 6.4-8.2 GM/DL Albumin 3.2 3.2-4.5 GM/DL Procalcitonin 0.02 <0.10 NG/ML Lactic Acid Level 4.12 *H 0.50-2.00 MMOL/L Micro Results Microbiology 05/25/21 Blood Culture - Preliminary, Resulted No growth 05/24/21 Blood Culture - Preliminary, Resulted No growth My Orders Orders - RAMO NASH Cbc With Automated Diff (05/24/21 23:44) Comprehensive Metabolic Panel (05/24/21 23:44) Ua Culture If Indicated (05/24/21 23:44) Ekg Tracing (05/24/21 23:46) Continuous Ekg Monitoring (05/24/21 23:46) Troponin I Gates (05/24/21 23:46) Bnp Gates (05/24/21 23:46) Manual Differential (05/24/21 23:46) Lactic Acid Analyzer (05/24/21 23:58) Blood Culture (05/24/21 23:58) Piperacillin Sodium/Tazobactam (Zosyn Vi (05/25/21 00:15) Hs C Reactive Protein (05/24/21 23:46) Magnesium (05/24/21 23:46) Procalcitonin (Pct) (05/24/21 23:46) Ed Iv/Invasive Line Start (05/25/21 00:33) Ns Iv 1000 Ml (Sodium Chloride 0.9%) (05/25/21 00:45) Medications Given in ED Vital Signs/I&O 05/24/21 05/25/21 23:38 00:34 Temp 37.2 Pulse 97 87 109 118 Resp 18 B/P (MAP) 100/59 (73) 89/60 (70) 85/37 (53) 64/34 (44) Pulse Ox 100 O2 Delivery Room Air Progress Progress Note #1: Time: 23:53 Progress Note The family is concerned that she may have had a seizure however it was so short- lived and it came after her syncopal episode it seems more likely that she is having just some full body motions related to syncope. Her blood pressure is low which would explain the syncope. Will let her get her liter of fluids and then do a set of orthostatic vital signs. We will check for signs of infection. We will then consult with Dr. Dalal. Patient declined anything for pain at this time. Pain medication may also lower her syncopal threshold. Differential includes dehydration, exsanguination, vasovagal, pain etc. Progress Note #2: Time: 01:13 Progress Note Staff is trying to get the patient up to go to the bathroom because she needed to urinate urgently and as soon as she stood up her pressure tanked to 60/30 and she had a syncopal episode. Put her in Trendelenburg and initiated a second IV in her right AC 18-gauge and initiated a second liter of fluids for a total of 30 mL/kg. Her lactate is elevated. Zosyn was ordered. We will do a straight catheter urine looking for infection. Bedside ultrasound was unable to reveal any fluid and around the kidneys, pouch of Kee or Angelo's. Communicated again with Dr. Dalal and he states if she has another syncopal episode get a CT of her upper abdomen. Otherwise he is okay to admit the patient to the ICU with eICU consult. We will get all her fluids and and start her on some Zosyn. Progress Note #3: Time: 01:54 Progress Note Discussed the case with radiology and they highly recommend against a CT angiogram. She is not having hemoptysis cough shortness of air or chest pain. No evidence of DVT. We discussed doing a nuclear medicine scan first thing in the morning with the patient and she is okay with this. Ultrasound is going to come in and do a abdominal ultrasound to examine ducts and look for free fluid. We discussed doing a prophylactic dose of Lovenox now but she is not having any symptoms and has a potential for a bleed in the abdomen we will hold off blood thinners until the nuclear medicine scan unless her symptoms change. She states that her pain is starting to return so we will give her 25 mcg of fentanyl. Current blood pressure 105/68. She is out of Trendelenburg position. Her 30 mL/kg fluid boluses almost done. We will continue her for a liter at 250 mL an hour. Half-normal saline. Progress Note #4: Time: 02:34 Progress Note Discussed ultrasound results with Dr. Dalal. Blood pressure 100/57 after 30 mils per cake. 250 cc an hour for 1 L then will put her on half-normal saline with potassium at 150 an hour, 1-1/2 times maintenance fluids. Again discussed laparoscopic exploration and he feels anything less than 500 is acceptable and normal after a surgery. Repeat lactate down to 3.1. Continue Zosyn. Initial ECG Impression Date: May 24, 2021 Initial ECG Impression Time: 23:52 Initial ECG Rate: 87 Initial ECG Rhythm: Normal Sinus Initial ECG Intervals: Normal Initial ECG Impression: Normal Initial ECG Comparisson: No Previous ECG Available Comment Normal sinus rhythm without clinically relevant ST changes Diagnostic Imaging Diagonstic Imaging: Ultrasound Plain Films/CT/US/NM/MRI: abdomen Comments Uterus is in free fluid 150 to 200 cc. Moderate amount of free fluid seen in the pelvis. [facility] [place], [place] NAME: JORGE MCGILL [facility] REC#: [id number] PT STATUS: ADM IN : 1990 PHYSICIAN: RAMO NASH MD ADMIT DATE: 05/25/21/ICU Signed Date of Exam:05/25/21 US ABDOMEN LIMITED [id number] EXAM: RIGHT UPPER QUADRANT ULTRASOUND DATE: May 25, 2021. COMPARISON: Right upper quadrant ultrasound May 21, 2021. INDICATION: 30-year-old female, status post cholecystectomy. Sepsis. PROCEDURE: Two-dimensional grayscale and color doppler ultrasound examination of the right upper quadrant is performed. FINDINGS: The liver is unremarkable in size and contour. There is no demonstrated liver lesion. The gallbladder is surgically absent. There is a small amount of hypoechogenicity in the region of the gallbladder fossa which may relate to fluid. There is no demonstrated intrahepatic bile duct dilation. The common bile duct measures 6 mm in diameter. There is free pelvic fluid. The patient appears to potentially be based on provided images 39, 40, and 41. The fetus is not well evaluated. IMPRESSION: 1. The patient appears to potentially be . The potential fetus is not well evaluated. Recommend correlation. 2. Free pelvic fluid. 3. Small amount of probable fluid in the gallbladder fossa status post cholecystectomy. 4. No biliary ductal dilation. Dictated by: Dictated on workstation # [id number] Dict: 05/25/21621 Trans: 05/25/2137 [facility] [id number] Interpreted by: ANNA MARTIN MD Electronically signed by: ANNA MARTIN MD 05/25/21 0737 Reviewed: Reviewed by Me Departure Communication (Admissions) Time/Spoke to Admitting Phy: 00:59 Discussed the case with Dr. Taylor and he recommends if she has more syncopal episodes then to get a CT of the abdomen. We discussed the bedside ultrasound findings. He agrees with Edisn. Consult eICU Time/Spoke to Consulting Phy: 01:20 Discussed the case with Shila Chong and he agrees with Zosyn fluids. Patient's not on pressors right now and has a decent blood pressure of 105/56. He recommends looking for pulmonary embolisms as the risk is very high. CT her chest and abdomen as well. Discussed the case with Dr. Nassar communications editor for Dr. Mejia. He agrees with the plan to scan for pulmonary embolisms and abdomen with IV contrast. Use a lead shield and he will pass the case back to Dr. Mejia in the morning. Impression Primary Impression: Septic shock Additional Impression: Status post laparoscopic cholecystectomy Disposition: ADMITTED INPATIENT Condition: Critical Admissions Decision to Admit Reason: Admit from ER (General) Decision to Admit/Date: May 25, 2021 Time/Decision to Admit Time: 01:00 Departure-Patient Inst. Referrals: [facility] (PCP/Family) Primary Care Physician RAMO NASH May 24, 2021 23:53
[2021-05-24 23:56] LABS: BASOPHILS # (AUTO) 0.1 10^3/uL (0.0-0.1); BASOPHILS % (AUTO) 0 % (0-10); EOSINOPHILS % (AUTO) 0 % (0-10); HEMATOCRIT 26 % (35-52); HEMOGLOBIN 8.7 g/dL (11.5-16.0); LYMPHOCYTES # (AUTO) 2.4 10^3/uL (1.0-4.0); LYMPHOCYTES % (AUTO) 7 % (12-44); MEAN CORPUSCULAR HEMOGLOBIN 30 pg (25-34); MEAN CORPUSCULAR HGB CONC 34 g/dL (32-36); MEAN CORPUSCULAR VOLUME 91 fL (80-99); MEAN PLATELET VOLUME 11.4 fL (9.0-12.2); MONOCYTES # (AUTO) 0.8 10^3/uL (0.0-1.0); MONOCYTES % (AUTO) 3 % (0-12); NEUTROPHILS # (AUTO) 29.9 10^3/uL (1.8-7.8); NEUTROPHILS % (AUTO) 89 % (42-75); PLATELET COUNT 303 10^3/uL (130-400)
[2021-05-24 23:57] LABS: WHITE BLOOD COUNT 33.5 10^3/uL (4.3-11.0)
[2021-05-25] VITALS (7 sets, daily range): BP systolic 64–111; BP diastolic 34–68
[2021-05-25 00:06] LABS: ALBUMIN 3.2 GM/DL (3.2-4.5)
[2021-05-25 00:07] LABS: CHLORIDE 105 MMOL/L (98-107); POTASSIUM 3.9 MMOL/L (3.6-5.0); SODIUM 134 MMOL/L (135-145)
[2021-05-25 00:08] LABS: GLUCOSE 241 MG/DL (70-105); TOTAL PROTEIN 5.9 GM/DL (6.4-8.2)
[2021-05-25 00:09] LABS: CARBON DIOXIDE 16 MMOL/L (21-32)
[2021-05-25 00:10] LABS: BILIRUBIN,TOTAL 0.4 MG/DL (0.1-1.0)
[2021-05-25 00:12] LABS: ALKALINE PHOSPHATASE 94 U/L (40-136); CREATININE SERUM 0.76 MG/DL (0.60-1.30); GFR ESTIMATED 107
[2021-05-25 00:13] LABS: BUN/CREATININE RATIO 7
[2021-05-25 00:15] LABS: ALANINE AMINOTRANSFERASE 180 U/L (0-55)
[2021-05-25] MEDS ORDERED: PIPERACILLIN SODIUM/TAZOBACTAM 4.5 GM in NS (IVPB) 100 ML IV ONE (00:15)
[2021-05-25 00:29] LABS: ATYPICAL LYMPHOCYTES 3 %; BAND NEUTROPHILS 5 %; LYMPHOCYTES % (MANUAL) 9 %; MONOCYTES % (MANUAL) 1 %; NEUTROPHILS % (MANUAL) 82 %
[2021-05-25 00:30] LABS: PLATELET CLUMPS MODERATE; RBC MORPH NORMAL
[2021-05-25 00:33] LABS: MAGNESIUM 1.8 MG/DL (1.6-2.4)
[2021-05-25] MEDS ORDERED: NS IV 1000 ML 1,000 ML IV SCH (00:45)
[2021-05-25] MEDS ORDERED: 1/2 NS IV SOLUTION 1,000 ML IV ONE ×2 (02:00→14:44)
[2021-05-25] MEDS ORDERED: fentaNYL INJ 100 MCG/2 ML AMP IVP ONE (02:00)
[2021-05-25 02:02] LABS: BILIRUBIN,URINE NEGATIVE (NEGATIVE); CLARITY,URINE CLEAR; COLOR,URINE YELLOW; GLUCOSE, URINE (UA) NEGATIVE (NEGATIVE); KETONES,URINE NEGATIVE (NEGATIVE); LEUKOCYTE ESTERASE ,URINE 2+ (NEGATIVE); NITRITE,URINE NEGATIVE (NEGATIVE); PROTEIN,URINE TRACE (NEGATIVE)
[2021-05-25 02:15] LABS: BACTERIA,URINE LARGE /HPF; RBC,URINE 0-2 /HPF; WBC,URINE 25-50 /HPF
--- NOTE | 2021-05-25 03:32 | Tele-ICU Consult ---
History of Present Illness History of Present Illness Date Seen by Provider: May 25, 2021 Time Seen by Provider: 01:48 Date of Admission This virtual visit was conducted using real time audio/video. Thank you for asking us to see this patient for syncopal episode at home. Brief 7-10 second seizure. Had lap choly 05/24 AM. Recent events: 2nd syncope in ER when she stood up. PMH: . SH: smoking history: No FH: Non-contributory ROS: as in HPI PE: VSS. 105/60 following bolus. O2 sat 100% on RA HEENT: No obvious masses, adenopathy or JVD. Chest: clear to auscultation. CV: RRR S1 S2 No murmur or added sounds. Abd: Non-tender. Bowel sounds Y. : Unremarkable. Oconnell N. [employer]/psychiatric: Grossly intact. No obvious focal findings. Extremities: No edema. Capillary refill < 3 seconds. Skin: unremarkable. Results: Elevated WCC 33.5. Lactate decreasing 3.17. . Decreased Na 134, Hb 8.7. 2+ Leuk. Esterase in urine. US abd unremarkable. Available chart/ vitals / labs / images reviewed. Video assessment done using teleICU camera, rest of exam as per RN. A/P: Probable urosepsis. Critical Care: critically ill patient. Cont. Zosyn. Radiology do not want CTAC, will do V/Q this AM. Surgery does not want empiric Lovenox with recent surgery. Discussed w ER . Discussed with NANCY Gaytan. Asked RN to reach out to eICU if any questions or concerns later. Time spent with patient/coordination of care with other health professionals (mins):25 Allergies and Home Medications Allergies Coded Allergies: No Known Drug Allergies (Unverified , 05/22/21) Home Medications Hydrocodone Bit/Acetaminophen 1 Tab Tab, 1 TAB PO Q8H PRN for PAIN-MODERATE (5- 7) Prescribed by: VANIA DALAL on 05/24/21 1105 Vit W-Ca,Fe,FA(<1 mg) 1 Each Tablet, 1 EACH PO DAILY, (Reported) Past Medical/Social/Family Hx Patient Social History Tobacco Use?: No Use of E-Cig and/or Vaping dev: No Substance use?: No Alcohol Use?: No Pt stated abuse/neglect: No Immunizations Up To Date Influenza Vaccine Up-to-Date: No; Not Current First/Initial COVID19 Vaccinat: 08/12 Second COVID19 Vaccination Ortiz: 09/11 Tetanus Booster (TDap): Less Than 5 Years Hepatitis A: Yes Hepatitis B: Yes TB Skin Test: None Current Status status: Yes Communicates: Verbally Primary Language: Namibian Preferred Spoken Language: Namibian Is interpretation needed?: No Review of Systems Constitutional: see HPI EENTM: see HPI Respiratory: see HPI Gastrointestinal: see HPI Genitourinary: see HPI Musculoskeletal: see HPI Skin: see HPI Psychiatric/Neurological: See HPI All Other Systems Reviewed Negative Unless Noted: Yes Focused Exam Lactate Level 05/24/21 23:59: Lactic Acid Level 4.12*H 05/25/21 02:12: Lactic Acid Level 3.17*H Height, Weight, BMI Height: 5'3.00" Weight: 179lbs. 2.0oz. 81.320080hv; 25.00 BMI Method: Lactic Acid Level Laboratory Tests Test 05/24/21 23:59 05/25/21 02:12 Lactic Acid Level 4.12 MMOL/L (0.50-2.00) *H 3.17 MMOL/L (0.50-2.00) *H Exam Exam Patient acknowledged, consented, and participated in this virtual visit which was conducted using real time audio/video Vital Signs Date Time Temp Pulse Resp B/P (MAP) Pulse Ox O2 Delivery O2 Flow Rate FiO2 05/25/21 00:34 87 89/60 (70) 109 85/37 (53) 118 64/34 (44) 05/24/21 23:38 37.2 97 18 100/59 (73) 100 Room Air I & O 05/25/21 07:00 Intake Total 250 ml Balance 250 ml Height & Weight Height: 5'3.00" Weight: 179lbs. 2.0oz. 81.661292ob; 25.00 BMI Method: General Appearance: WD/WN, Moderate Distress HEENT: PERRL/EOMI, TMs Normal, Normal ENT Inspection, Pharynx Normal; No Moist Mucous Membranes Neck: Full Range of Motion, Normal Inspection Respiratory: Lungs Clear, Normal Breath Sounds, No Accessory Muscle Use, No Respiratory Distress Cardiovascular: Regular Rate, Rhythm, No Edema, Normal Peripheral Pulses Capillary Refill: Less Than 3 Seconds Extremity: Normal Capillary Refill, Normal Inspection, No Pedal Edema Neurologic/Psychiatric: Alert, Oriented x3, Normal Mood/Affect Skin: Normal Color, Warm/Dry Results Lab Laboratory Tests 05/24/21 23:46 Assessment/Plan Assessment/Plan See free text. Critical Care: Critically Ill Patient RACHEL RICE MD May 25, 2021 03:32
[2021-05-25] MEDS ORDERED: EPINEPHrine 1 MG INJECTION 4 MG in NS (IVPB) 248 ML IV SCH (04:30)
[2021-05-25] MEDS ORDERED: fentaNYL INJ 100 MCG/2 ML AMP IV PRN (04:45)
[2021-05-25] MEDS ORDERED: ONDANSETRON 4 MG/2 ML (SDV) Z0FRAN IV PRN (04:45)
[2021-05-25] MEDS: VASOPRESSIN INJECTION 20 UNIT in NS (IVPB) 100 ML IV SCH ×2 (05:57→17:16)
[2021-05-25] MEDS: NOREPINEPHRINE 8 MG/250 ML 250 ML IV SCH ×4 (05:57→23:05)
[2021-05-25] MEDS: 1/2 NS W/KCL 20 MEQ/L 1,000 ML IV SCH ×4 (06:27→23:06)
[2021-05-25] MEDS: PIPERACILLIN SODIUM/TAZOBACTAM 4.5 GM in NS (IVPB) 100 ML IV SCH ×3 (06:32→21:26)
--- NOTE | 2021-05-25 06:43 | Diagnostic Imaging Report ---
EXAM: RIGHT UPPER QUADRANT ULTRASOUND DATE: May 25, 2021. COMPARISON: Right upper quadrant ultrasound May 21, 2021. INDICATION: 30-year-old female, status post cholecystectomy. Sepsis. PROCEDURE: Two-dimensional grayscale and color doppler ultrasound examination of the right upper quadrant is performed. FINDINGS: The liver is unremarkable in size and contour. There is no demonstrated liver lesion. The gallbladder is surgically absent. There is a small amount of hypoechogenicity in the region of the gallbladder fossa which may relate to fluid. There is no demonstrated intrahepatic bile duct dilation. The common bile duct measures 6 mm in diameter. There is free pelvic fluid. The patient appears to potentially be based on provided images 39, 40, and 41. The fetus is not well evaluated. IMPRESSION: 1. The patient appears to potentially be . The potential fetus is not well evaluated. Recommend correlation. 2. Free pelvic fluid. 3. Small amount of probable fluid in the gallbladder fossa status post cholecystectomy. 4. No biliary ductal dilation. Dictated by: Dictated on workstation # [id number]
[2021-05-25 07:46] LABS: BASOPHILS % (AUTO) 0 % (0-10); EOSINOPHILS % (AUTO) 0 % (0-10); LYMPHOCYTES # (AUTO) 1.9 10^3/uL (1.0-4.0); LYMPHOCYTES % (AUTO) 9 % (12-44); MEAN CORPUSCULAR HEMOGLOBIN 31 pg (25-34); MEAN CORPUSCULAR HGB CONC 34 g/dL (32-36); MEAN CORPUSCULAR VOLUME 89 fL (80-99); MEAN PLATELET VOLUME 11.3 fL (9.0-12.2); MONOCYTES # (AUTO) 0.5 10^3/uL (0.0-1.0); MONOCYTES % (AUTO) 2 % (0-12); NEUTROPHILS # (AUTO) 19.1 10^3/uL (1.8-7.8); NEUTROPHILS % (AUTO) 88 % (42-75); PLATELET COUNT 217 10^3/uL (130-400); WHITE BLOOD COUNT 21.6 10^3/uL (4.3-11.0)
[2021-05-25 07:50] LABS: HEMOGLOBIN 6.2 g/dL (11.5-16.0)
[2021-05-25 07:51] LABS: HEMATOCRIT 18 % (35-52)
[2021-05-25 08:07] LABS: ALBUMIN 2.6 GM/DL (3.2-4.5); BILIRUBIN,TOTAL 0.4 MG/DL (0.1-1.0); CALCIUM 6.8 MG/DL (8.5-10.1); CREATININE SERUM 0.53 MG/DL (0.60-1.30); MAGNESIUM 1.7 MG/DL (1.6-2.4); PHOSPHORUS 3.2 MG/DL (2.3-4.7); POTASSIUM 3.6 MMOL/L (3.6-5.0); TOTAL PROTEIN 4.7 GM/DL (6.4-8.2)
[2021-05-25] MEDS ORDERED: NS IV 500 ML 500 ML IV SCH (08:45)
--- NOTE | 2021-05-25 08:54 | Diagnostic Imaging Report ---
INDICATION: Shortness of breath COMPARISON: None. FINDINGS: RADIOPHARMACEUTICAL: 4.55 mCi technetium 99m MAA IV. FINDINGS: Perfusion images of the lungs were obtained. There is homogeneous distribution of the tracer activity throughout both lungs. No perfusion defect is seen. IMPRESSION: Negative perfusion lung scan. No pulmonary embolism. Dictated by: Dictated on workstation # [id number]
[2021-05-25] MEDS ORDERED: morphine INJ 4 MG/ML 1 ML (VIAL/SYRINGE) ONE (09:33)
[2021-05-25] MEDS: morphine INJ 4 MG/ML 1 ML (VIAL/SYRINGE) IVP PRN ×4 (09:37→21:35)
--- NOTE | 2021-05-25 09:45 | Diagnostic Imaging Report ---
INDICATION: Septic shock. Recent cholecystectomy. . PROCEDURE: Ultrasound abdomen complete. TECHNIQUE: Multiple real-time grayscale images were obtained of the abdomen in various projections. COMPARISON: Ultrasound performed earlier the same date. FINDINGS: The liver is normal in size, shape and echotexture. There are no focal lesions. No intra or extrahepatic biliary dilatation is present. The common bile duct is nondilated and measures 0.5 cm. Postsurgical changes of cholecystectomy are noted. There is heterogeneous echogenicity within the gallbladder fossa which is expected given the recent surgical changes. The visualized portions of the head and proximal body of the pancreas are within normal limits. The distal body and tail are not well visualized due to overlying bowel gas. Both kidneys are normal in size and echogenicity. The cortical thickness and the corticomedullary differentiation is well maintained. The right kidney measures 10.4 cm. The left kidney measures 9.9 cm. There is no evidence of calculi, focal mass or hydronephrosis. The spleen is not enlarged. The visualized upper aorta and IVC are normal in course and caliber. A small volume of ascites is seen in the abdomen. IMPRESSION: 1. Postsurgical changes of cholecystectomy. 2. Small volume of ascites in the abdomen. This is nonspecific and continued follow-up is recommended. 3. Unremarkable sonographic appearance of the liver. No focal mass is seen. Dictated by: Dictated on workstation # [id number]
[2021-05-25] MEDS: KCL 20 MEQ TAB (K-DUR) PO SCH (10:08)
--- NOTE | 2021-05-25 10:21 | Consultation - Surgery ---
[facility] 05/25/21 1021: History of Present Illness History of Present Illness Patient Consulted On(neela/time) 05/25/21 10:17 Date Seen by Provider: May 25, 2021 Time Seen by Provider: 10:18 Reason for Visit: Septic Shock History of Present Illness 30 yo F at 14 weeks S/P Laparoscopic Cholecystectomy, POD1 that presented to the ED following a syncopal episode while getting into a car. Patient reports urinary continence and confusion after the syncopal episode and witnesses stated that she had "seizure like" activity. Prior to that episode, patient did report that she felt nauseous and hot, as well as, muscle soreness and sharp pains that shoot to her groin and sharp pains also located in her chest/rib cage. While in the ER, patient encountered another syncopal episode while staff was performing orthostatic blood pressure measurements. She received a CBC revealing a WBC of 33.5, Hgb of 8.7, a lactic of 4.12, and a UA showing 2+ leukocyte esterase, large bacteria, and 25-50 WBC. US showed postsurgical changes of cholecystectomy.and small volume of ascites in the abdomen. Perfusion scan was obtain and was negative for a pulmonary embolism. Patient was admitted to ICU and currently receiving 1 unit or PRBCs as hemoglobin had decreased to 6.2. Allergies and Home Medications Allergies Coded Allergies: No Known Drug Allergies (Unverified , 05/22/21) Patient Home Medication List Home Medication List Reviewed: Yes Hydrocodone/Acetaminophen (Hydrocodone-Acetamin 5-325 mg) 1 Each Tablet, 1 EA PO Q8H PRN for PAIN-MODERATE (5-7), (Reported) Entered as Reported by: SHYLA RODRIGUES on 05/25/21 1151 Last Action: Reviewed Vit W-Ca,Fe,FA(<1 mg) ( Vitamins) 1 Each Tablet, 1 EACH PO DAILY, (Reported) Entered as Reported by: MICHELLE MCGOVERN on 08/20/18 1210 Last Action: Reviewed Discontinued Medications Docusate Sodium (Colace) 100 Mg Capsule, 100 MG PO BID Discontinued Reason: No Longer Taking Prescribed by: CESAR ALVARADO on 08/20/18 1435 Esomeprazole Magnesium (Nexium) 10 Mg Suspdr.pkt, 10 MG PO DAILY, (Reported) Discontinued Reason: No Longer Taking Entered as Reported by: MICHELLE MCGOVERN on 08/20/18 1210 Hydrocodone Bit/Acetaminophen (HYDROcodone/APAP 5 MG/325 MG TAB) 1 Tab Tab, 1 TAB PO Q8H PRN for PAIN-MODERATE (5-7) Discontinued Reason: No Longer Taking Prescribed by: VANIA DALAL on 05/24/21 1105 Last Action: Discontinued Ibuprofen (Ibuprofen) 800 Mg Tablet, 800 MG PO Q6H PRN for PAIN Discontinued Reason: No Longer Taking Prescribed by: CESAR ALVARADO on 08/20/18 1435 Loratadine (Claritin) 10 Mg Tablet, 10 MG PO DAILY, (Reported) Discontinued Reason: No Longer Taking Entered as Reported by: MICHELLE MCGOVERN on 08/20/18 1210 Oxycodone HCl/Acetaminophen (Percocet 5-325 mg Tablet) 1 Each Tablet, 1 TAB PO Q4H Discontinued Reason: No Longer Taking Prescribed by: CESAR ALVARADO on 08/20/18 1435 Past [place]-Lyivtd-Bexnfs Hx Patient Social History Smoking Status: Former Smoker (quit aproximately 6 years ago) Type Used: Cigarettes Recent Hopitalizations: No Alcohol Use?: No Have you traveled recently?: No Immunizations Up To Date PED Vaccines UTD: Yes Seasonal Allergies Seasonal Allergies: Yes Surgeries History of Surgeries: Yes ([place] Teeth) Surgeries: Gallbladder Respiratory History of Respiratory Disorde: No Cardiovascular History of Cardiac Disorders: No Neurological History of Neurological Disord: No Reproductive System : Yes Hx : 4 Hx Para: 3 Sexually Transmitted Disease: No HIV/AIDS: No Female Reproductive Disorders: Denies Genitourinary History of Genitourinary Disor: No Gastrointestinal History of Gastrointestinal Di: Yes Gastrointestinal Disorders: Gastroesophageal Reflux Musculoskeletal History of Musculoskeletal Dis: No Endocrine History of Endocrine Disorders: No HEENT History of HEENT Disorders: No Loss of Vision: Denies Hearing Impairment: Denies Cancer History of Cancer: No Psychosocial History of Psychiatric Problem: No Integumentary History of Skin or Integumenta: No Blood Transfusions History of Blood Disorders: No Adverse Reaction to a Blood Tr: No Family Medical History Significant Family History: CAD Over 55 Years Old, COPD, Diabetes Family Medial History: CABG Grandparents (Maternal Grandfather) Cardiovascular disease Grandparents (Maternal Grandfather) Cataracts Grandparents (Maternal Grandmother) Completed stroke Grandparents (Maternal and Paternal Grandmothers) DVT 19 MOTHER Dementia Grandparents (Paternal Grandmother) Diabetes mellitus Grandparents (Maternal Grandfather) Hypercholesterolemia Grandparents (Maternal Grandfather) Hypertension Grandparents (Maternal Grandfather) Myocardial infarction Grandparents (Maternal Grandfather) Osteoporosis Grandparents (Paternal Grandmother) Parkinson's disease Grandparents (Paternal Grandmother) Respiratory disorder Grandparents (Maternal Grandmother-COPD) Review of Systems-General Constitutional: No chills; fever EENTM: No ear pain, No eye pain Respiratory: No cough; short of breath ("difficult to take a deep breath due to soreness") Cardiovascular: chest pain (thoracic); No palpitations; syncope Gastrointestinal: abdominal pain; No diarrhea; nausea; No vomiting Genitourinary: No dysuria, No frequency : Yes Expected Date of Delivery: Nov 21, 2021 Musculoskeletal: No joint swelling; other (Joint erythema) Skin: No pruritus, No rash Psychiatric/Neurological: Denies Anxiety, Denies Depressed Other No history of bruising or bleeding Physical Exam-General Problems Physical Exam Vital Signs Vital Signs - First Documented 05/24/21 23:38 Temp 37.2 Pulse 97 Resp 18 B/P (MAP) 100/59 (73) Pulse Ox 100 O2 Delivery Room Air Capillary Refill : Less Than 3 Seconds General Appearance: WD/WN, no apparent distress, other (Tired) Eyes: Bilateral Eye Normal Inspection, Bilateral Eye PERRL HEENT: pharynx normal; No scleral icterus (R), No scleral icterus (L) Neck: non-tender, normal inspection Respiratory: chest non-tender, no respiratory distress, no accessory muscle use Cardiovascular: normal peripheral pulses (2+ radial pulses bilaterally), no murmur, tachycardia Peripheral Pulses: 2+ Radial Pulses (R), 2+ Radial Pulses (L) Gastrointestinal: soft; No distended, No guarding; tenderness (most tender at supraumbilical incision) Extremities: non-tender (LE bilaterally), normal inspection (Except for 2 IV's at the antecubital fossa, and tatoos), no calf tenderness Neurologic/Psychiatric: alert, oriented x 3 Skin: normal color, warm/dry Lymphatic: no adenopathy (posterior cervical or supraclavicular) Data Review Labs Laboratory Tests 05/24/21 23:46: White Blood Count 33.5*H, Red Blood Count 2.86L, Hemoglobin 8.7L, Hematocrit 26L , Mean Corpuscular Volume 91, Mean Corpuscular Hemoglobin 30, Mean Corpuscular Hemoglobin Concent 34, Red Cell Distribution Width 11.9, Platelet Count 303, Mean Platelet Volume 11.4, Immature Granulocyte % (Auto) 1, Neutrophils (%) (Auto) 89H, Lymphocytes (%) (Auto) 7L, Monocytes (%) (Auto) 3, Eosinophils (%) (Auto) 0, Basophils (%) (Auto) 0, Neutrophils # (Auto) 29.9H, Lymphocytes # (Auto) 2.4, Monocytes # (Auto) 0.8, Eosinophils # (Auto) 0.0, Basophils # (Auto) 0.1, Immature Granulocyte # (Auto) 0.3H, Neutrophils % (Manual) 82, Lymphocytes % (Manual) 9, Monocytes % (Manual) 1, Band Neutrophils 5, Atypical Lymphocytes 3, Clumped Platelets MODERATE, Blood Morphology Comment NORMAL, Sodium Level 134L, Potassium Level 3.9, Chloride Level 105, Carbon Dioxide Level 16L, Anion Gap 13, Blood Urea Nitrogen 5L, Creatinine 0.76, Estimat Glomerular Filtration Rate 107, BUN/Creatinine Ratio 7, Glucose Level 241H, Calcium Level 8.0L, Corrected Calcium 8.6, Magnesium Level 1.8, Total Bilirubin 0.4, Aspartate Amino Transf (AST/SGOT) 46H, Alanine Aminotransferase (ALT/SGPT) 180H, Alkaline Phosphatase 94, Troponin I < 0.028, C-Reactive Protein High Sensitivity 0.25, B- Type Natriuretic Peptide 91.8, Total Protein 5.9L, Albumin 3.2, Procalcitonin 0.02 05/24/21 23:59: Lactic Acid Level 4.12*H 05/25/21 01:46: Urine Color YELLOW, Urine Clarity CLEAR, Urine pH 6.0, Urine Specific [place] >=1.030, Urine Protein TRACEH, Urine Glucose (UA) NEGATIVE, Urine Ketones NEGATIVE, Urine Nitrite NEGATIVE, Urine Bilirubin NEGATIVE, Urine Urobilinogen 0.2, Urine Leukocyte Esterase 2+H, Urine RBC (Auto) NEGATIVE, Urine RBC 0-2, Urine WBC 25-50H, Urine Squamous Epithelial Cells 2-5, Urine Crystals NONE, Urine Bacteria LARGEH, Urine Casts PRESENT, Urine Hyaline Casts 5-10H, Urine Mucus NEGATIVE, Urine Culture Indicated YES 05/25/21 02:12: Lactic Acid Level 3.17*H 05/25/21 07:40: White Blood Count 21.6H, Red Blood Count 2.02L, Hemoglobin 6.2#*L, Hematocrit 18*L, Mean Corpuscular Volume 89, Mean Corpuscular Hemoglobin 31, Mean Corpuscular Hemoglobin Concent 34, Red Cell Distribution Width 11.9, Platelet Count 217, Mean Platelet Volume 11.3, Immature Granulocyte % (Auto) 1, Neutrophils (%) (Auto) 88H, Lymphocytes (%) (Auto) 9L, Monocytes (%) (Auto) 2, Eosinophils (%) (Auto) 0, Basophils (%) (Auto) 0, Neutrophils # (Auto) 19.1H, Lymphocytes # (Auto) 1.9, Monocytes # (Auto) 0.5, Eosinophils # (Auto) 0.0, Basophils # (Auto) 0.0, Immature Granulocyte # (Auto) 0.2H, Sodium Level 134L, Potassium Level 3.6, Chloride Level 109H, Carbon Dioxide Level 16L, Anion Gap 9, Blood Urea Nitrogen 5L, Creatinine 0.53L, Estimat Glomerular Filtration Rate 127, BUN/Creatinine Ratio 9, Glucose Level 122H, Lactic Acid Level 0.89, Calcium Level 6.8L, Corrected Calcium 7.9L, Phosphorus Level 3.2, Magnesium Level 1.7, Total Bilirubin 0.4, Aspartate Amino Transf (AST/SGOT) 36H, Alanine Aminotransferase (ALT/SGPT) 138H, Alkaline Phosphatase 77, Total Protein 4.7L, Albumin 2.6L Radiology Date of Exam:05/25/21 US ABDOMEN COMPLETE [id number] INDICATION: Septic shock. Recent cholecystectomy. . PROCEDURE: Ultrasound abdomen complete. TECHNIQUE: Multiple real-time grayscale images were obtained of the abdomen in various projections. COMPARISON: Ultrasound performed earlier the same date. FINDINGS: The liver is normal in size, shape and echotexture. There are no focal lesions. No intra or extrahepatic biliary dilatation is present. The common bile duct is nondilated and measures 0.5 cm. Postsurgical changes of cholecystectomy are noted. There is heterogeneous echogenicity within the gallbladder fossa which is expected given the recent surgical changes. The visualized portions of the head and proximal body of the pancreas are within normal limits. The distal body and tail are not well visualized due to overlying bowel gas. Both kidneys are normal in size and echogenicity. The cortical thickness and the corticomedullary differentiation is well maintained. The right kidney measures 10.4 cm. The left kidney measures 9.9 cm. There is no evidence of calculi, focal mass or hydronephrosis. The spleen is not enlarged. The visualized upper aorta and IVC are normal in course and caliber. A small volume of ascites is seen in the abdomen. IMPRESSION: 1. Postsurgical changes of cholecystectomy. 2. Small volume of ascites in the abdomen. This is nonspecific and continued follow-up is recommended. 3. Unremarkable sonographic appearance of the liver. No focal mass is seen. Dictated by: Dictated on workstation # [id number] Dict: 05/25/21 0937 Trans: 05/25/21 0945 [facility] [id number] Interpreted by: MYKEL GARZON DO Electronically signed by: MYKEL GARZON DO 05/25/21 0945 Assessment/Plan Assessment/Plan Admission Diagonsis Septic Shock Assessment/Plan septic shock - IV fluids - Iv Antibiotics - Monitor Electrolytes UTI - Continue IV zosyn S/P Lap Awa - Continue current pain regimen as needed - DVT prophylaxis with SCDs - Currently NPO - Incentive spirometer Anemia (6.2) - Continue blood transfusion per protocol - Continue to monitor with CBC Leukocytosis - monitor with CBC and currently 14 weeks - Consult OBGYN Final Diagnosis Septic Shock VANIA DALAL DO 05/25/21 1617: History of Present Illness History of Present Illness Time Seen by Provider: 08:51 History of Present Illness Pt is a 33 yo female admitted last night for hypotension and possible seizure. HPI: she had lap awa with IOC yesterday morning, complete hemostasis after case. Hg was 11 on , 8.7 last night and 6.2 this am. Complained of abdominal pain, not severe and ER physician last night thought no worse than normal post-operative. When I saw her this am she was lying in bed, slightly lethargic and wanted some ice chips. Allergies and Home Medications Allergies Coded Allergies: No Known Drug Allergies (Unverified , 05/22/21) Patient Home Medication List Home Medication List Reviewed: Yes Hydrocodone/Acetaminophen (Hydrocodone-Acetamin 5-325 mg) 1 Each Tablet, 1 EA PO Q8H PRN for PAIN-MODERATE (5-7), (Reported) Entered as Reported by: SHYLA RODRIGUES on 05/25/21 1151 Last Action: Reviewed Vit W-Ca,Fe,FA(<1 mg) ( Vitamins) 1 Each Tablet, 1 EACH PO DAILY, (Reported) Entered as Reported by: MICHELLE MCGOVERN on 08/20/18 1210 Last Action: Reviewed Discontinued Medications Docusate Sodium (Colace) 100 Mg Capsule, 100 MG PO BID Discontinued Reason: No Longer Taking Prescribed by: CESAR ALVARADO on 08/20/18 1435 Esomeprazole Magnesium (Nexium) 10 Mg Suspdr.pkt, 10 MG PO DAILY, (Reported) Discontinued Reason: No Longer Taking Entered as Reported by: MICHELLE MCGOVERN on 08/20/18 1210 Hydrocodone Bit/Acetaminophen (HYDROcodone/APAP 5 MG/325 MG TAB) 1 Tab Tab, 1 TAB PO Q8H PRN for PAIN-MODERATE (5-7) Discontinued Reason: No Longer Taking Prescribed by: VANIA DALAL on 05/24/21 1105 Last Action: Discontinued Ibuprofen (Ibuprofen) 800 Mg Tablet, 800 MG PO Q6H PRN for PAIN Discontinued Reason: No Longer Taking Prescribed by: CESAR ALVARADO on 08/20/18 1435 Loratadine (Claritin) 10 Mg Tablet, 10 MG PO DAILY, (Reported) Discontinued Reason: No Longer Taking Entered as Reported by: MICHELLE MCGOVERN on 08/20/18 1210 Oxycodone HCl/Acetaminophen (Percocet 5-325 mg Tablet) 1 Each Tablet, 1 TAB PO Q4H Discontinued Reason: No Longer Taking Prescribed by: CESAR ALVARADO on 08/20/18 1435 Past Ighklmf-Uslrha-Zdddci Hx Patient Social History Smoking Status: Former Smoker (quit aproximately 6 years ago) Type Used: Cigarettes Surgeries History of Surgeries: Yes Surgeries: Gallbladder Respiratory History of Respiratory Disorde: No Cardiovascular History of Cardiac Disorders: No Neurological History of Neurological Disord: No Reproductive System : Yes Genitourinary History of Genitourinary Disor: No Gastrointestinal History of Gastrointestinal Di: Yes Gastrointestinal Disorders: Gall Bladder Disease Musculoskeletal History of Musculoskeletal Dis: No Endocrine History of Endocrine Disorders: No HEENT History of HEENT Disorders: No Cancer History of Cancer: No Psychosocial History of Psychiatric Problem: No Family Medical History Significant Family History: CAD Over 55 Years Old, Diabetes, Hypertension Family Medial History: CABG Grandparents (Maternal Grandfather) Cardiovascular disease Grandparents (Maternal Grandfather) Cataracts Grandparents (Maternal Grandmother) Completed stroke Grandparents (Maternal and Paternal Grandmothers) DVT 19 MOTHER Dementia Grandparents (Paternal Grandmother) Diabetes mellitus Grandparents (Maternal Grandfather) Hypercholesterolemia Grandparents (Maternal Grandfather) Hypertension Grandparents (Maternal Grandfather) Myocardial infarction Grandparents (Maternal Grandfather) Osteoporosis Grandparents (Paternal Grandmother) Parkinson's disease Grandparents (Paternal Grandmother) Respiratory disorder Grandparents (Maternal Grandmother-COPD) Review of Systems-General Constitutional: No chills, No diaphoresis; fever, malaise, weakness EENTM: No ear pain, No eye pain, No mouth swelling Respiratory: No cough; short of breath ("difficult to take a deep breath due to soreness") Cardiovascular: chest pain (thoracic); No palpitations; syncope Gastrointestinal: abdominal pain; No diarrhea; nausea; No vomiting Genitourinary: No dysuria, No frequency : Yes Musculoskeletal: No joint swelling; muscle stiffness Skin: No change in color, No change in hair/nails, No pruritus, No rash Psychiatric/Neurological: Denies Anxiety, Denies Depressed Physical Exam-General Problems Physical Exam General Appearance: WD/WN, mild distress Eyes: Bilateral Eye PERRL, Bilateral Eye EOMI HEENT: pharynx normal; No scleral icterus (R), No scleral icterus (L); other (face appears "puffy") Neck: non-tender, normal inspection Respiratory: chest non-tender, no respiratory distress, no accessory muscle use Cardiovascular: normal peripheral pulses (2+ radial pulses bilaterally), no murmur, tachycardia Gastrointestinal: soft, distended (slightly more than yesterday), guarding (voluntary and more on right), tenderness (most tender at supraumbilical incision, but more right side compared to left) Rectal: deferred Extremities: non-tender (LE bilaterally), normal inspection (Except for 2 IV's at the antecubital fossa, and tatoos), no calf tenderness Neurologic/Psychiatric: alert, oriented x 3 Skin: normal color, warm/dry Lymphatic: no adenopathy (posterior cervical or supraclavicular) Assessment/Plan Assessment/Plan Assessment/Plan Hypotension UTI S/P Lap awa Anemia - ??due to blood loss vs due to Leukocytosis Currently Treat for UTI with oral ABX, monitor Hg, did transfuse 2 units of PRBCs. US last night and this morning no significant change in fluid in the abdomen, looked more like ascites and not really blood. I reviewed them myself and went over with Radiologist; who agreed "much less likely it was hemoperitoneum". IV fluids, ice chips, pain control and continue to monitor in the ICU. Doubt this is septic shock, hypotension due to hypovolemia. Lactic acid is normalizing with fluids. Supervisory-Addendum Brief Verification & Attestation Participated in pt care: history, MDM, physical Personally performed: exam, history, MDM, supervision of care Care discussed with: Medical Student Procedures: n/a Verification and Attestation of Medical Student E/M Service A medical student performed and documented this service. I then reviewed and verified all information documented by the medical student and made modifications to such information, when appropriate. I personally performed a physical exam, medical decision making and then discussed any differences between the notes and made revisions as necessary to create one note. Vania Dalal , 05/25/21 , 16:22 [facility] May 25, 2021 10:21 VANIA DALAL DO May 25, 2021 16:17
[2021-05-25] MEDS ORDERED: ACHD5005 PO (11:51)
[2021-05-25] MEDS ORDERED: MAGNESIUM 1 GM/100 ML IVPB 100 ML IV ONE (12:30)
--- NOTE | 2021-05-25 13:21 | Consultation ---
History of Present Illness History of Present Illness Patient Consulted On(ortiz/time) 05/25/21 13:20 Date Seen by Provider: May 25, 2021 Time Seen by Provider: 08:45 Reason for Visit: Septic Shock History of Present Illness I was asked to consult on this patient due to . She is a 5 para 2 female at approximately 14 weeks of gestation with estimated date of confinement of 11/21/2021. She has established care with me and I have seen her for 2 visits. Her so far has been uncomplicated. She reports a history of abdominal pain beginning 1 week ago on Monday. She states she is had this right upper quadrant pain off and on for 6 years and she had attributed this to gastritis. She states this started after broccoli cheese soup. It was getting progressively worse so she went to [facility] on and had an ultrasound that showed gallstones and gallbladder wall thickening. She was admitted to the hospital that day with increasing pain in her LFTs bilirubin and lipase were elevated likely due to gallbladder disease and early pancreatitis. There is no explanation for elevated LFTs just due to . As her pain was worsening and she did not think that she could tolerate this pain through the , it was planned to do a cholecystectomy on 05/24/2021. This was done yesterday and reportedly was without complication. She was sent home with routine postoperative instructions. She states she did have a little bit of incisional pain and took a Vicodin while at home. She states that she had a syncopal episode and her states that it looked like she was having a seizure before she passed out. She was brought to the hospital via EMS and had another similar episode. Her blood pressure was in the 70/40 range. On admission, she was afebrile, but her white blood cell count was 33,000 and hemoglobin was 8.7, previously was 11. In addition she had white blood cells, leukocyte esterase in the urine. She was admitted for suspected septic shock. Her blood pressures were consistent with orthostasis. She was given IV fluids and started on IV Zosyn. This morning her hemoglobin is 6 with no obvious evidence of cause of hemorrhage. She is receiving 1 unit of blood currently. She reports that she is having some pain but it is mainly associated with her incisions and in the right upper quadrant. She had previously been on fentanyl IV and states that this did not help very much because it did not last long enough. She has since been changed to morphine, but has not had any morphine as of yet. Allergies and Home Medications Allergies Coded Allergies: No Known Drug Allergies (Unverified , 05/22/21) Patient Home Medication List Home Medication List Reviewed: Yes Hydrocodone/Acetaminophen (Hydrocodone-Acetamin 5-325 mg) 1 Each Tablet, 1 EA PO Q8H PRN for PAIN-MODERATE (5-7), (Reported) Entered as Reported by: SHYLA RODRIGUES on 05/25/21 1151 Last Action: Reviewed Vit W-Ca,Fe,FA(<1 mg) ( Vitamins) 1 Each Tablet, 1 EACH PO DAILY, (Reported) Entered as Reported by: MICHELLE MCGOVERN on 08/20/18 1210 Last Action: Reviewed Discontinued Medications Docusate Sodium (Colace) 100 Mg Capsule, 100 MG PO BID Discontinued Reason: No Longer Taking Prescribed by: CESAR ALVARADO on 08/20/18 1435 Esomeprazole Magnesium (Nexium) 10 Mg Suspdr.pkt, 10 MG PO DAILY, (Reported) Discontinued Reason: No Longer Taking Entered as Reported by: MICHELLE MCGOVERN on 08/20/18 1210 Hydrocodone Bit/Acetaminophen (HYDROcodone/APAP 5 MG/325 MG TAB) 1 Tab Tab, 1 TAB PO Q8H PRN for PAIN-MODERATE (5-7) Discontinued Reason: No Longer Taking Prescribed by: VANIA DALAL on 05/24/21 1105 Last Action: Discontinued Ibuprofen (Ibuprofen) 800 Mg Tablet, 800 MG PO Q6H PRN for PAIN Discontinued Reason: No Longer Taking Prescribed by: CESAR ALVARADO on 08/20/18 1435 Loratadine (Claritin) 10 Mg Tablet, 10 MG PO DAILY, (Reported) Discontinued Reason: No Longer Taking Entered as Reported by: MICHELLE MCGOVERN on 08/20/18 1210 Oxycodone HCl/Acetaminophen (Percocet 5-325 mg Tablet) 1 Each Tablet, 1 TAB PO Q4H Discontinued Reason: No Longer Taking Prescribed by: CESAR ALVARADO on 08/20/18 1435 Past Kjiqxlr-Cnduzj-Qmnxwh Hx Patient Social History Tobacco Use?: No Smoking Status: Former Smoker (quit aproximately 6 years ago) Use of E-Cig and/or Vaping dev: No Substance use?: No Alcohol Use?: No Pt feels they are or have been: No Immunizations Up To Date PED Vaccines UTD: Yes Influenza Vaccine Up-to-Date: No; Not Current First/Initial COVID19 Vaccinat: 08/12/20 Second COVID19 Vaccination Ortiz: 09/11/20 Third COVID19 Vaccination Date: 05/15/21 COVID19 Vaccine Hat Brim Curler: SHELLI Seasonal Allergies Seasonal Allergies: Yes Past Medical History Surgery/Hospitalization HX: CHOLECYSTECTOMY Surgeries: Yes (M[employer]) Gallbladder Respiratory: No Currently Using CPAP: No Currently Using BIPAP: No Cardiac: No Neurological: No : Yes Expected Date of Delivery: Nov 21, 2021 Hx : 5 Hx Para: 2 Hx Total # of Abortions (Sp): 2 Female Reproductive Disorders: Denies Sexually Transmitted Disease: No HIV/AIDS: No Genitourinary: No Gastrointestinal: Yes Gastroesophageal Reflux Musculoskeletal: No Endocrine: No HEENT: No Loss of Vision: Denies Hearing Impairment: Denies Cancer: No Psychosocial: No Integumentary: No Blood Disorders: No Adverse Reaction/Blood Tranf: No Family Medical History CABG Grandparents (Maternal Grandfather) Cardiovascular disease Grandparents (Maternal Grandfather) Cataracts Grandparents (Maternal Grandmother) Completed stroke Grandparents (Maternal and Paternal Grandmothers) DVT 19 MOTHER Dementia Grandparents (Paternal Grandmother) Diabetes mellitus Grandparents (Maternal Grandfather) Hypercholesterolemia Grandparents (Maternal Grandfather) Hypertension Grandparents (Maternal Grandfather) Myocardial infarction Grandparents (Maternal Grandfather) Osteoporosis Grandparents (Paternal Grandmother) Parkinson's disease Grandparents (Paternal Grandmother) Respiratory disorder Grandparents (Maternal Grandmother-COPD) CAD Over 55 Years Old, COPD, Diabetes Review of Systems-General Constitutional: dizziness Respiratory: no symptoms reported Cardiovascular: no symptoms reported Gastrointestinal: RUQ, abdominal pain (RUQ); No nausea, No vomiting; other (some suprapubic discomfort) Genitourinary: No dysuria, No frequency, No hematuria; other (no vaginal bleeding) : Yes Expected Date of Delivery: Nov 21, 2021 Musculoskeletal: No no symptoms reported Psychiatric/Neurological: Denies No Symptoms Reported All Other Systems Reviewed Negative Unless Noted: Yes Physical Exam-General Problems Physical Exam Vital Signs Vital Signs - First Documented 05/24/21 23:38 Temp 37.2 Pulse 97 Resp 18 B/P (MAP) 100/59 (73) Pulse Ox 100 O2 Delivery Room Air Capillary Refill : Less Than 3 Seconds General Appearance: no apparent distress Gastrointestinal: No distended, No guarding, No rebound; tenderness (generalized but worse in RUQ and surrounding incisions), other (FHT 150 by doppler) Assessment/Plan Assessment/Plan Admission Diagnosis/Plan 1. at 14 2/7 weeks 2. septic shock, unclear etiology 3. history of cholecystectomy 4. acute blood loss anemia - currently receiving blood products 5. possible UTI Plan per surgery. Agree with pain management and antibiotics. Check FHT every shift. At this point, maternal health is of utmost importance, however, if rads (cumulative > 200 mrads) can be limited, and/or pelvis can be shielded, that would be recommended. I will be available for questions and will continue to see her while she is in the hospital. Admission Status: Other (consultation) PACO ODOM DO May 25, 2021 13:21
[2021-05-25] MEDS: POTASSIUM CL 10MEQ/50ML IVPB 50 ML IV SCH ×3 (14:59→17:16)
[2021-05-25 16:25] LABS: HEMOGLOBIN 8.6 g/dL (11.5-16.0)
[2021-05-25] MEDS: MAGNESIUM 1 GM/100 ML IVPB 100 ML IV SCH ×3 (17:16→17:25)
[2021-05-26] MEDS: VASOPRESSIN INJECTION 20 UNIT in NS (IVPB) 100 ML IV SCH ×2 (03:53→13:20)
[2021-05-26] MEDS: morphine INJ 4 MG/ML 1 ML (VIAL/SYRINGE) IVP PRN ×3 (03:53→12:27)
[2021-05-26] MEDS: 1/2 NS W/KCL 20 MEQ/L 1,000 ML IV SCH ×3 (04:39→20:48)
[2021-05-26 04:50] LABS: BASOPHILS % (AUTO) 0 % (0-10); EOSINOPHILS % (AUTO) 0 % (0-10); HEMATOCRIT 21 % (35-52); HEMOGLOBIN 7.3 g/dL (11.5-16.0); LYMPHOCYTES # (AUTO) 1.9 10^3/uL (1.0-4.0); LYMPHOCYTES % (AUTO) 15 % (12-44); MEAN CORPUSCULAR HEMOGLOBIN 31 pg (25-34); MEAN CORPUSCULAR HGB CONC 35 g/dL (32-36); MEAN CORPUSCULAR VOLUME 89 fL (80-99); MONOCYTES # (AUTO) 0.7 10^3/uL (0.0-1.0); MONOCYTES % (AUTO) 5 % (0-12); NEUTROPHILS # (AUTO) 10.3 10^3/uL (1.8-7.8); NEUTROPHILS % (AUTO) 79 % (42-75); PLATELET COUNT 155 10^3/uL (130-400); WHITE BLOOD COUNT 12.9 10^3/uL (4.3-11.0)
[2021-05-26 05:02] LABS: ALBUMIN 2.6 GM/DL (3.2-4.5); POTASSIUM 3.6 MMOL/L (3.6-5.0)
[2021-05-26 05:03] LABS: CALCIUM 6.9 MG/DL (8.5-10.1)
[2021-05-26 05:05] LABS: TOTAL PROTEIN 4.6 GM/DL (6.4-8.2)
[2021-05-26 05:06] LABS: BILIRUBIN,TOTAL 0.7 MG/DL (0.1-1.0)
[2021-05-26 05:08] LABS: CREATININE SERUM 0.5 MG/DL (0.60-1.30); PHOSPHORUS 1.4 MG/DL (2.3-4.7)
[2021-05-26] MEDS: POTASSIUM CL 10MEQ/50ML IVPB 50 ML IV SCH ×3 (05:09→06:15)
[2021-05-26 05:11] LABS: MAGNESIUM 2.2 MG/DL (1.6-2.4)
[2021-05-26] MEDS: KCL 20 MEQ TAB (K-DUR) PO SCH (05:15)
[2021-05-26] MEDS: MAGNESIUM 1 GM/100 ML IVPB 100 ML IV SCH (05:15)
[2021-05-26] MEDS: PIPERACILLIN SODIUM/TAZOBACTAM 4.5 GM in NS (IVPB) 100 ML IV SCH ×3 (05:16→21:57)
--- NOTE | 2021-05-26 08:13 | Progress Note - Surgery ---
[facility] 05/26/21 0813: Subjective Date Seen by a Provider: May 26, 2021 Time Seen by a Provider: 07:45 Subjective/Events-last exam No acute events overnight, patietn remains afebrile, but had tachycardia during encounter Patient continues to have abdominal pain, but has not worsened Patient did report passing gas which relieved some pain Continues to have difficulty taking a deep breath due to pain WBC trending downwards to 12.6 (21.6 yesterday) Hemoglobin at 7.3 Review of Systems General: No Chills, No Other (fevers) Pulmonary: Dyspnea (Difficulty taking deep breath due to pain); No Cough Cardiovascular: Chest Pain (Thoracic pain); No: Palpitations Gastrointestinal: Abdominal Pain Genitourinary: Other (Has leiva) Focused Exam Lactate Level 05/24/21 23:59: Lactic Acid Level 4.12*H 05/25/21 02:12: Lactic Acid Level 3.17*H 05/25/21 07:40: Lactic Acid Level 0.89 Objective Exam Vital Signs Date Time Temp Pulse Resp B/P (MAP) Pulse Ox O2 Delivery O2 Flow Rate FiO2 05/26/21 07:00 96 28 90/45 98 Room Air 05/26/21 06:15 98 21 96/41 97 Room Air 05/26/21 05:00 63 18 95/50 97 Room Air 05/26/21 04:00 37.3 Room Air 05/26/21 04:00 Room Air 05/26/21 04:00 98 23 98/51 97 Room Air 05/26/21 03:00 110 23 97/47 97 Room Air 05/26/21 02:15 94 23 91/49 97 Room Air 05/26/21 01:00 93 21 98/49 98 Room Air 05/26/21 01:00 93 05/26/21 00:00 37.2 Room Air 05/26/21 00:00 92 21 93/60 98 Room Air 05/25/21 23:59 Room Air 05/25/21 23:00 96 27 96/59 99 Room Air 05/25/21 22:00 93 23 104/58 97 Room Air 05/25/21 21:00 85 25 99/59 98 Room Air 05/25/21 20:00 93 18 104/58 99 Room Air 05/25/21 20:00 38.0 Room Air 05/25/21 20:00 Room Air 05/25/21 19:00 86 05/25/21 19:00 86 18 106/59 99 Room Air 05/25/21 18:00 100 14 102/61 99 Room Air 05/25/21 17:00 85 20 95/85 99 Room Air 05/25/21 16:00 37.9 05/25/21 16:00 Room Air 05/25/21 16:00 86 35 112/64 99 Room Air 05/25/21 15:00 105 23 108/62 98 Room Air 05/25/21 14:53 37.6 83 14 105/46 99 Room Air 05/25/21 14:00 86 11 105/64 99 Room Air 05/25/21 13:00 86 20 104/58 99 Room Air 05/25/21 12:48 91 05/25/21 12:34 37.4 91 16 108/59 99 Room Air 05/25/21 12:11 37.8 87 14 111/68 100 Room Air 05/25/21 12:07 37.8 94 14 111/68 99 Room Air 05/25/21 12:00 Room Air 05/25/21 12:00 110 22 111/68 99 Room Air 05/25/21 11:00 106 25 108/61 100 Room Air 05/25/21 10:19 37.2 96 25 107/60 100 Room Air 05/25/21 10:00 100 20 103/64 100 Room Air 05/25/21 09:58 37.2 101 24 109/59 100 Room Air 05/25/21 09:00 114 26 109/65 100 Room Air I & O 05/26/21 07:00 Intake Total 190 ml Output Total 3010 ml Balance -2820 ml Capillary Refill : Less Than 3 Seconds General Appearance: No Apparent Distress, WD/WN HEENT: PERRL/EOMI, Pharynx Normal; No Moist Mucous Membranes, No Scleral Icterus (L), No Scleral Icterus (R) Neck: Normal Inspection, Supple Respiratory: Lungs Clear, Normal Breath Sounds, No Accessory Muscle Use, No Respiratory Distress Cardiovascular: No Edema, Normal Peripheral Pulses (2+ radial pulses bilaterally), Tachycardia (but regular) Peripheral Pulses: 2+ Radial Pulses (R), 2+ Radial Pulses (L) Gastrointestinal: soft, distended (slightly more than yesterday), tenderness (most tender at supraumbilical incision, ) Extremity: Normal Inspection, No Calf Tenderness Neurologic/Psychiatric: Alert, Oriented x3, Normal Mood/Affect Skin: Normal Color, Warm/Dry Lymphatic: No Adenopathy (supraclavicular or posterior cervical) Results Lab Laboratory Tests 05/25/21 16:13: Hemoglobin 8.6#L, Hematocrit 25L 05/25/21 17:28: Glucometer 94 05/25/21 23:56: Glucometer 88 05/26/21 04:30: Hemoglobin 7.3L, Hematocrit 21L, White Blood Count 12.9H, Red Blood Count 2.37L, Mean Corpuscular Volume 89, Mean Corpuscular Hemoglobin 31, Mean Corpuscular Hemoglobin Concent 35, Red Cell Distribution Width 13.0, Platelet Count 155, Mean Platelet Volume 11.0, Immature Granulocyte % (Auto) 1, Neutrophils (%) (Auto) 79H, Lymphocytes (%) (Auto) 15, Monocytes (%) (Auto) 5, Eosinophils (%) (Auto) 0, Basophils (%) (Auto) 0, Neutrophils # (Auto) 10.3H, Lymphocytes # (Auto) 1.9, Monocytes # (Auto) 0.7, Eosinophils # (Auto) 0.0, Basophils # (Auto) 0.0, Immature Granulocyte # (Auto) 0.1, Sodium Level 134L, Potassium Level 3.6, Chloride Level 111H, Carbon Dioxide Level 16L, Anion Gap 7, Blood Urea Nitrogen 4L, Creatinine 0.50L, Estimat Glomerular Filtration Rate 129, BUN/Creatinine Ratio 8, Glucose Level 91, Calcium Level 6.9L, Corrected Calcium 8.0L, Phosphorus Level 1.4L, Magnesium Level 2.2, Total Bilirubin 0.7, Aspartate Amino Transf (AST/SGOT) 27, Alanine Aminotransferase (ALT/SGPT) 108H, Alkaline Phosphatase 73, Total Protein 4.6L, Albumin 2.6L Microbiology 05/25/21 MRSA Screen - Final, Complete MRSA not isolated 05/25/21 Urine Culture - Preliminary, Resulted NO GROWTH 05/25/21 Blood Culture - Preliminary, Resulted No growth Assessment/Plan Assessment/Plan Assessment/Plan septic shock - IV fluids - Iv Antibiotics - Monitor Electrolytes - continue to monitor blood pressure UTI - Continue IV zosyn S/P Lap Awa - Encourage Incentive spirometer - PT/OT consult, encourage OOB activity as tolerated - Continue current pain regimen as needed - DVT prophylaxis with SCDs - Currently NPO Anemia (currently 7.3) - S/P 2 blood transfusions - Transfuse per protocol ie less than 7.0 - Continue to monitor with CBC Leukocytosis - monitor with CBC and currently 14 weeks 3/7 days - Appreciate OBGYN - Continue FHT every as recommended by OBRUDDY KWOK DO 05/26/21 1606: Subjective Time Seen by a Provider: 13:34 Subjective/Events-last exam Pt seen and examined, no new complaints. Nurse states she is requiring some morphine for pain. Review of Systems General: No Chills Pulmonary: Dyspnea (Difficulty taking deep breath due to pain); No Cough Cardiovascular: Chest Pain (Thoracic pain); No: Palpitations Gastrointestinal: Abdominal Pain, Constipation Genitourinary: Other (Has leiva) Objective Exam General Appearance: No Apparent Distress (she actually looks better today, face is less puffy), WD/WN HEENT: PERRL/EOMI, Moist Mucous Membranes Respiratory: Lungs Clear, Normal Breath Sounds, No Accessory Muscle Use, No Respiratory Distress Cardiovascular: No Murmur, Tachycardia (but regular) Gastrointestinal: soft, distended (slightly more than yesterday), tenderness (most tender at supraumbilical incision, ) Extremity: No Calf Tenderness Neurologic/Psychiatric: Alert, Oriented x3 Assessment/Plan Assessment/Plan Assessment/Plan UTI - Continue IV zosyn S/P Lap Awa - Encourage Incentive spirometer - PT/OT consult, encourage OOB activity as tolerated - Continue current pain regimen as needed - DVT prophylaxis with SCDs - Will start clears, but make npo after MN Anemia (currently 7.3) - S/P 2 blood transfusions - Transfuse per protocol ie less than 7.0 - Continue to monitor with CBC tomorrow am Leukocytosis - monitor with CBC, resolving and currently 14 weeks 3/7 days - Appreciate OBGYN - Continue FHT every as recommended by OBGYN Supervisory-Addendum Brief Verification & Attestation Participated in pt care: history, MDM, physical Personally performed: exam, history, MDM, supervision of care Care discussed with: Medical Student Procedures: n/a Verification and Attestation of Medical Student E/M Service A medical student performed and documented this service. I then reviewed and verified all information documented by the medical student and made modifications to such information, when appropriate. I personally performed a physical exam, medical decision making and then discussed any differences betwe en the notes and made revisions as necessary to create one note. Ruddy Dalal , 05/26/21 , 16:05 WILL[facility] SOLIZ May 26, 2021 08:13 RUDDY DALAL DO May 26, 2021 16:06
--- NOTE | 2021-05-26 10:22 | Progress Note ---
Standard Progress Note Progress Notes/Assess & Plan Date Seen by a Provider: May 26, 2021 Time Seen by a Provider: 10:20 Progress/Assessment & Plan Has received 2 units of PRBCs due to Hgb 6.2. Previous Hgb on 05/20 was 11.2 and 05/21 was 9.6, so likely some iron deficiency but unexplained drop after surgery. Urine culture was negative/ no growth. She states she still has pain and it's about the same. Some flatus, no BM, No nausea or emesis. No vaginal bleeding or cramping. She is NPO Abdomen is more distended with generalized tenderness. some rebound, no guarding. FHT - 155 Assessment: 1. POD day 2 s/p LS cholecystectomy. LFTs, bilirubin are normalizing 2. septic shock, possible. Labs improving. 3. UA - negative culture 4. Hgb 7.3, suspicious for continual bleeding but unknown source. May have some iron deficiency preexisting, but does not explain drop. does not explain drop. 5. 14 + week gestation - stable Focused Exam Lactate Level 05/24/21 23:59: Lactic Acid Level 4.12*H 05/25/21 02:12: Lactic Acid Level 3.17*H 05/25/21 07:40: Lactic Acid Level 0.89 PACO ODOM DO May 26, 2021 10:22
--- NOTE | 2021-05-26 11:39 | Tele-ICU Progress Note ---
Subjective Date Seen by a Provider: May 26, 2021 Time Seen by a Provider: 11:38 Sepsis Event Evaluation Height, Weight, BMI Height: 5'3.00" Weight: 179lbs. 2.0oz. [id number]; 27.07 BMI Method: Focused Exam Lactate Level 05/24/21 23:59: Lactic Acid Level 4.12*H 05/25/21 02:12: Lactic Acid Level 3.17*H 05/25/21 07:40: Lactic Acid Level 0.89 Exam Exam Patient acknowledged, consented, and participated in this virtual visit which was conducted using real time audio/video Vital Signs Date Time Temp Pulse Resp B/P (MAP) Pulse Ox O2 Delivery O2 Flow Rate FiO2 05/26/21 10:00 101 28 118/65 99 Room Air 05/26/21 09:00 105 26 120/64 99 Room Air 05/26/21 08:14 Room Air 05/26/21 08:00 100 12 114/63 99 Room Air 05/26/21 08:00 37.5 05/26/21 07:00 96 28 90/45 98 Room Air 05/26/21 07:00 101 05/26/21 06:15 98 21 96/41 97 Room Air 05/26/21 05:00 63 18 95/50 97 Room Air 05/26/21 04:00 37.3 Room Air 05/26/21 04:00 Room Air 05/26/21 04:00 98 23 98/51 97 Room Air 05/26/21 03:00 110 23 97/47 97 Room Air 05/26/21 02:15 94 23 91/49 97 Room Air 05/26/21 01:00 93 21 98/49 98 Room Air 05/26/21 01:00 93 05/26/21 00:00 37.2 Room Air 05/26/21 00:00 92 21 93/60 98 Room Air 05/25/21 23:59 Room Air 05/25/21 23:00 96 27 96/59 99 Room Air 05/25/21 22:00 93 23 104/58 97 Room Air 05/25/21 21:00 85 25 99/59 98 Room Air 05/25/21 20:00 93 18 104/58 99 Room Air 05/25/21 20:00 38.0 Room Air 05/25/21 20:00 Room Air 05/25/21 19:00 86 05/25/21 19:00 86 18 106/59 99 Room Air 05/25/21 18:00 100 14 102/61 99 Room Air 05/25/21 17:00 85 20 95/85 99 Room Air 05/25/21 16:00 37.9 05/25/21 16:00 Room Air 05/25/21 16:00 86 35 112/64 99 Room Air 05/25/21 15:00 105 23 108/62 98 Room Air 05/25/21 14:53 37.6 83 14 105/46 99 Room Air 05/25/21 14:00 86 11 105/64 99 Room Air 05/25/21 13:00 86 20 104/58 99 Room Air 05/25/21 12:48 91 05/25/21 12:34 37.4 91 16 108/59 99 Room Air 05/25/21 12:11 37.8 87 14 111/68 100 Room Air 05/25/21 12:07 37.8 94 14 111/68 99 Room Air 05/25/21 12:00 Room Air 05/25/21 12:00 110 22 111/68 99 Room Air I & O 05/26/21 06:59 Intake Total 190 ml Output Total 3010 ml Balance -2820 ml Height & Weight Height: 5'3.00" Weight: 179lbs. 2.0oz. [id number]; 27.07 BMI Method: General Appearance: No Apparent Distress, WD/WN HEENT: PERRL/EOMI, Pharynx Normal; No Moist Mucous Membranes, No Scleral Icterus (L), No Scleral Icterus (R) Neck: Normal Inspection, Supple Respiratory: Lungs Clear, Normal Breath Sounds, No Accessory Muscle Use, No Respiratory Distress Cardiovascular: No Edema, Normal Peripheral Pulses (2+ radial pulses bilaterally), Tachycardia (but regular) Capillary Refill: Less Than 3 Seconds Peripheral Pulses: 2+ Radial Pulses (R), 2+ Radial Pulses (L) Gastrointestinal: soft, distended (slightly more than yesterday), tenderness (most tender at supraumbilical incision, ) Extremity: Normal Inspection, No Calf Tenderness Neurologic/Psychiatric: Alert, Oriented x3, Normal Mood/Affect Skin: Normal Color, Warm/Dry Lymphatic: No Adenopathy (supraclavicular or posterior cervical) Results Lab Laboratory Tests 05/24/21 23:46 05/25/21 07:40 05/25/21 16:13 05/26/21 04:30 Assessment/Plan Assessment/Plan (Tele-ICU Physician , Progress Note ) Available chart/ vitals / labs / Images reviewed Video assessment done using teleICU camera, rest of exam as per RN Discussed with RN , EXAM PER RN Events overnight : Afebrile FiO2 - ra I/O = Drips: Pressors: , hemodynamically stable Consultants: Hospital course: A/P POD day 2 s/p LS cholecystectomy. - as per sx - on zisyn septic shock, ( less likley hemorrhagic , no PE by VQ - not on pressors Anemia - ? delutional vs bleeding ( no sourse by exam - as per sx - if more shocky - will check US Pregnancyy , 14 + week gestation - stable, OB MD follows syncopal episode at home x2 - no PE by VQ Lines : (Central Line Necessity Reviewed) Oconnell: OG: Nutrition: Analgesia: Anxiety/ delirium VTE Prophylaxis: scd Stress Ulcer Prophylaxis: h2bl Plans in collaboration with bedside consultants and IM MDs. Discussed with RN to reach out if any questions or concerns A total of 31 minutes of critical care time was devoted to this patient today, required to treat and/or prevent further deterioration of critical care condition ( as above) . BARRERA CARTER MD May 26, 2021 11:38
[2021-05-26] MEDS: FAMOTIDINE 20MG/2ML IV (PEPCID) IVP SCH (12:27)
[2021-05-26] MEDS: NOREPINEPHRINE 8 MG/250 ML 250 ML IV SCH ×2 (18:52)
[2021-05-26] MEDS: HYDROcodone/APAP 5 MG/325 MG (LORTAB) TAB PO PRN (22:00)
[2021-05-27] MEDS: VASOPRESSIN INJECTION 20 UNIT in NS (IVPB) 100 ML IV SCH ×2 (00:39→12:54)
[2021-05-27 04:35] LABS: BASOPHILS % (AUTO) 0 % (0-10); EOSINOPHILS # (AUTO) 0.1 10^3/uL (0.0-0.3); EOSINOPHILS % (AUTO) 1 % (0-10); LYMPHOCYTES # (AUTO) 1.9 10^3/uL (1.0-4.0); LYMPHOCYTES % (AUTO) 21 % (12-44); MEAN CORPUSCULAR HEMOGLOBIN 31 pg (25-34); MEAN CORPUSCULAR HGB CONC 34 g/dL (32-36); MEAN CORPUSCULAR VOLUME 90 fL (80-99); MEAN PLATELET VOLUME 10.9 fL (9.0-12.2); MONOCYTES # (AUTO) 0.6 10^3/uL (0.0-1.0); MONOCYTES % (AUTO) 7 % (0-12); NEUTROPHILS # (AUTO) 6.4 10^3/uL (1.8-7.8); NEUTROPHILS % (AUTO) 70 % (42-75); PLATELET COUNT 164 10^3/uL (130-400); WHITE BLOOD COUNT 9.1 10^3/uL (4.3-11.0)
[2021-05-27 04:48] LABS: ALBUMIN 2.7 GM/DL (3.2-4.5)
[2021-05-27 04:49] LABS: CALCIUM 7.4 MG/DL (8.5-10.1)
[2021-05-27 04:50] LABS: TOTAL PROTEIN 4.9 GM/DL (6.4-8.2)
[2021-05-27 04:52] LABS: BILIRUBIN,TOTAL 0.6 MG/DL (0.1-1.0)
[2021-05-27 04:54] LABS: CREATININE SERUM 0.49 MG/DL (0.60-1.30)
[2021-05-27 04:57] LABS: MAGNESIUM 2.1 MG/DL (1.6-2.4)
[2021-05-27] MEDS: MAGNESIUM 1 GM/100 ML IVPB 100 ML IV SCH (05:01)
[2021-05-27] MEDS: POTASSIUM CL 10MEQ/50ML IVPB 50 ML IV SCH (05:01)
[2021-05-27] MEDS: KCL 20 MEQ TAB (K-DUR) PO SCH (05:01)
[2021-05-27 05:03] LABS: HEMATOCRIT 20 % (35-52); HEMOGLOBIN 6.9 g/dL (11.5-16.0)
[2021-05-27] MEDS: PIPERACILLIN SODIUM/TAZOBACTAM 4.5 GM in NS (IVPB) 100 ML IV SCH ×3 (05:26→22:19)
[2021-05-27] MEDS ORDERED: NS IV 500 ML 500 ML IV SCH (05:45)
[2021-05-27] MEDS: HYDROcodone/APAP 5 MG/325 MG (LORTAB) TAB PO PRN ×3 (07:36→20:00)
[2021-05-27 07:52] VITALS: BP 108/63
[2021-05-27] MEDS: 1/2 NS W/KCL 20 MEQ/L 1,000 ML IV SCH (08:00)
[2021-05-27] MEDS: FAMOTIDINE 20MG/2ML IV (PEPCID) IVP SCH (08:00)
--- NOTE | 2021-05-27 08:08 | Progress Note - Surgery ---
[facility] 05/27/21 0808: Subjective Date Seen by a Provider: May 27, 2021 Time Seen by a Provider: 08:02 Subjective/Events-last exam Patient remains afebrile, and heart rate appears to be improving. Was tachycardic during encounter (101) but has been recorded as regular. Was experiencing right sided abdominal pain. Stated that it was sharp Passing gas, but has not had a bowel movement Hemoglobin decreased to 6.9 last night. WBC at 9.1 Review of Systems General: No Chills, No Other (fevers) Pulmonary: No Dyspnea, No Cough Gastrointestinal: Abdominal Pain; No: Vomiting Focused Exam Lactate Level 05/24/21 23:59: Lactic Acid Level 4.12*H 05/25/21 02:12: Lactic Acid Level 3.17*H 05/25/21 07:40: Lactic Acid Level 0.89 Objective Exam Vital Signs Date Time Temp Pulse Resp B/P (MAP) Pulse Ox O2 Delivery O2 Flow Rate FiO2 05/27/21 07:52 37.0 93 20 108/63 100 Room Air 05/27/21 06:00 87 28 95/54 96 Room Air 05/27/21 05:00 84 22 88/55 99 Room Air 05/27/21 04:00 82 23 79/43 100 Room Air 05/27/21 04:00 Room Air 05/27/21 03:00 69 20 86/39 100 Room Air 05/27/21 02:00 77 20 85/43 99 Room Air 05/27/21 01:00 75 05/27/21 01:00 75 20 86/44 99 Room Air 05/27/21 00:13 36.5 05/27/21 00:00 Room Air 05/27/21 00:00 88 22 98/51 99 Room Air 05/26/21 23:00 96 24 100/54 100 Room Air 05/26/21 22:00 103 20 100/61 96 Room Air 05/26/21 21:00 91 30 102/61 100 Room Air 05/26/21 20:00 93 28 94/55 99 Room Air 05/26/21 20:00 Room Air 05/26/21 19:00 116 05/26/21 19:00 116 20 104/55 96 Room Air 05/26/21 18:00 105 31 97/54 100 Room Air 05/26/21 17:00 102 20 100/61 99 Room Air 05/26/21 16:26 Room Air 05/26/21 16:00 112 13 105/46 100 Room Air 05/26/21 15:38 37.2 05/26/21 15:00 105 20 102/62 99 Room Air 05/26/21 14:00 92 24 105/57 98 Room Air 05/26/21 13:00 96 28 94/57 99 Room Air 05/26/21 13:00 93 05/26/21 12:40 Room Air 05/26/21 12:00 37.3 05/26/21 12:00 104 25 108/66 99 Room Air 05/26/21 11:00 98 25 107/68 98 Room Air 05/26/21 10:00 101 28 114/59 99 Room Air 05/26/21 10:00 101 28 118/65 99 Room Air 05/26/21 09:00 105 26 120/64 99 Room Air 05/26/21 08:14 Room Air I & O 05/27/21 07:00 Intake Total 3025 ml Output Total 5475 ml Balance -2450 ml Capillary Refill : Less Than 3 Seconds General Appearance: No Apparent Distress (was experiencing pain during encounter), WD/WN HEENT: PERRL/EOMI, Moist Mucous Membranes; No Scleral Icterus (L), No Scleral Icterus (R) Neck: Normal Inspection, Supple Respiratory: Lungs Clear, Normal Breath Sounds, No Accessory Muscle Use, No Respiratory Distress Cardiovascular: No Murmur, Tachycardia (but regular) Peripheral Pulses: 2+ Radial Pulses (R), 2+ Radial Pulses (L) Gastrointestinal: soft, distended (Improved), tenderness (most tender at supraumbilical incision, ), other (Did not experience pain with movement of bed) Extremity: No Calf Tenderness Neurologic/Psychiatric: Alert, Oriented x3 Skin: Normal Color, Warm/Dry Lymphatic: No Adenopathy (supraclavicular or posterior cervical) Results Lab Laboratory Tests 05/26/21 17:28: Glucometer 74 05/27/21 04:10: White Blood Count 9.1, Red Blood Count 2.25L, Hemoglobin 6.9*L, Hematocrit 20*L, Mean Corpuscular Volume 90, Mean Corpuscular Hemoglobin 31, Mean Corpuscular Hemoglobin Concent 34, Red Cell Distribution Width 13.0, Platelet Count 164, Mean Platelet Volume 10.9, Immature Granulocyte % (Auto) 0, Neutrophils (%) (Auto) 70, Lymphocytes (%) (Auto) 21, Monocytes (%) (Auto) 7, Eosinophils (%) (Auto) 1, Basophils (%) (Auto) 0, Neutrophils # (Auto) 6.4, Lymphocytes # (Auto) 1.9, Monocytes # (Auto) 0.6, Eosinophils # (Auto) 0.1, Basophils # (Auto) 0.0, Immature Granulocyte # (Auto) 0.0, Sodium Level 135, Potassium Level 4.0, Chloride Level 110H, Carbon Dioxide Level 18L, Anion Gap 7, Blood Urea Nitrogen 3L, Creatinine 0.49L, Estimat Glomerular Filtration Rate 129, BUN/Creatinine Ratio 6, Glucose Level 83, Calcium Level 7.4L, Corrected Calcium 8.4L, Phosphorus Level 2.0L, Magnesium Level 2.1, Total Bilirubin 0.6, Aspartate Amino Transf (AST/SGOT) 16, Alanine Aminotransferase (ALT/SGPT) 85H, Alkaline Phosphatase 112, Total Protein 4.9L, Albumin 2.7L Microbiology 05/25/21 MRSA Screen - Final, Complete MRSA not isolated 05/25/21 Urine Culture - Final, Complete NO GROWTH 05/25/21 Blood Culture - Preliminary, Resulted No growth Assessment/Plan Assessment/Plan Assessment/Plan UTI - 05/27, urine culture showed no growth - Complete full course of IV zosyn then will discontinue S/P Lap Awa - Encourage Incentive spirometer - PT/OT consult, encourage OOB activity as tolerated - Continue current pain regimen as needed - DVT prophylaxis with SCDs - Will start clears, but make npo after MN Anemia (currently 6.9 on 05/27)) - S/P 2 blood transfusions - Transfuse per protocol ie less than 7.0 - Continue to monitor with CBC tomorrow am Leukocytosis (resolved on 05/27) - monitor with CBC, and currently 14 weeks 3/7 days - Appreciate OBGYN - Continue FHT every as recommended by RUDDY FANG DO 05/27/21 1349: Subjective Time Seen by a Provider: 11:32 Subjective/Events-last exam Pt seen and examined, states she feels ok and thinks better than yesterday. +Flatus and nurse states pain seems more controlled Review of Systems General: No Chills; Fatigue Pulmonary: No Dyspnea, No Cough Gastrointestinal: Abdominal Pain; No: Vomiting Objective Exam General Appearance: No Apparent Distress (looked at least as good as yesterday, more alert) HEENT: PERRL/EOMI, Moist Mucous Membranes; No Scleral Icterus (L), No Scleral I cterus (R) Respiratory: Lungs Clear, Normal Breath Sounds, No Accessory Muscle Use, No Respiratory Distress Cardiovascular: Regular Rate, Rhythm, No Murmur Gastrointestinal: soft, distended (Improved, no worse than yesterday), tenderness (most tender at supraumbilical incision ), other (Did not experience pain with movement of bed) Assessment/Plan Assessment/Plan Assessment/Plan UTI - 2/3, urine culture showed no growth - Complete full course of IV zosyn then will discontinue Anemia (currently 6.9) - S/P 2 blood transfusions did receive another this am - Continue to monitor with CBC S/P Lap Awa - Encourage Incentive spirometer - PT/OT consult, encourage OOB activity as tolerated - Continue current pain regimen as needed - DVT prophylaxis with SCDs - Will start clears, but make npo after MN (just to be safe) and currently 14 weeks 3/7 days - Appreciate OBGYN - Continue FHT every as recommended by OBGYN Supervisory-Addendum Brief Verification & Attestation Participated in pt care: history, MDM, physical Personally performed: exam, history, MDM, supervision of care Care discussed with: Medical Student Procedures: n/a Verification and Attestation of Medical Student E/M Service A medical student performed and documented this service. I then reviewed and verified all information documented by the medical student and made modifications to such information, when appropriate. I personally performed a physical exam, medical decision making and then discussed any differences between the notes and made revisions as necessary to create one note. Ruddy Dalal , 05/27/21 , 13:[address] [facility] May 27, 2021 08:08 RUDDY DALAL DO May 27, 2021 13:49
[2021-05-27 08:11] VITALS: BP 113/70
--- NOTE | 2021-05-27 10:49 | Progress Note ---
Standard Progress Note Progress Notes/Assess & Plan Date Seen by a Provider: May 27, 2021 Time Seen by a Provider: 10:00 Progress/Assessment & Plan Subjective: Patient is doing well with no complaints this morning. She denies fever, chills, nausea or vomiting. Oconnell in place. She is ambulating in the room and passing flatus. She is tolerating a regular diet. She denies feeling movement, which is normal at this gestational age. She denies vaginal bleeding or leakage of fluid. Objective: Vital Sign - Last 24 Hours 05/26/21 05/26/21 05/26/21 05/26/21 11:00 12:00 12:00 12:40 Temp 37.3 Pulse 98 104 Resp 25 25 B/P (MAP) 107/68 108/66 Pulse Ox 98 99 O2 Delivery Room Air Room Air Room Air 05/26/21 05/26/21 05/26/21 05/26/21 13:00 13:00 14:00 15:00 Pulse 93 96 92 105 Resp 28 24 20 B/P (MAP) 94/57 105/57 102/62 Pulse Ox 99 98 99 O2 Delivery Room Air Room Air Room Air 05/26/21 05/26/21 05/26/21 05/26/21 15:38 16:00 16:26 17:00 Temp 37.2 Pulse 112 102 Resp 13 20 B/P (MAP) 105/46 100/61 Pulse Ox 100 99 O2 Delivery Room Air Room Air Room Air 05/26/21 05/26/21 05/26/21 05/26/21 18:00 19:00 19:00 20:00 Pulse 105 116 116 Resp 31 20 B/P (MAP) 97/54 104/55 Pulse Ox 100 96 O2 Delivery Room Air Room Air Room Air 05/26/21 05/26/21 05/26/21 05/26/21 20:00 21:00 22:00 23:00 Pulse 93 91 103 96 Resp 28 30 20 24 B/P (MAP) 94/55 102/61 100/61 100/54 Pulse Ox 99 100 96 100 O2 Delivery Room Air Room Air Room Air Room Air 05/27/21 05/27/21 05/27/21 05/27/21 00:00 00:00 00:13 01:00 Temp 36.5 Pulse 88 75 Resp 22 20 B/P (MAP) 98/51 86/44 Pulse Ox 99 99 O2 Delivery Room Air Room Air Room Air 05/27/21 05/27/21 05/27/21 05/27/21 01:00 02:00 03:00 04:00 Pulse 75 77 69 Resp 20 20 B/P (MAP) 85/43 86/39 Pulse Ox 99 100 O2 Delivery Room Air Room Air Room Air 05/27/21 05/27/21 05/27/21 05/27/21 04:00 05:00 06:00 07:00 Pulse 82 84 87 92 Resp 23 28 B/P (MAP) 79/43 88/55 95/54 Pulse Ox 100 99 96 O2 Delivery Room Air Room Air Room Air 05/27/21 05/27/21 05/27/21 05/27/21 07:52 08:00 08:10 08:11 Temp 37.0 36.6 37.2 Pulse 93 87 Resp B/P (MAP) 108/63 113/70 Pulse Ox 100 100 O2 Delivery Room Air Room Air Room Air Intake and Output 05/26/21 05/26/21 05/27/21 15:00 23:00 07:00 Intake Total 325 ml 2600 ml 100 ml Output Total 2400 ml 2000 ml 1075 ml Balance -2075 ml 600 ml -975 ml Physical Examination: Please see below. Gen: NAD CV: RRR Resp: CTAB. On RA Abdomen: Gravid uterus. Soft, non-distended abdomen this morning. Negative rebound. Appropriately tender to palpation. 3 trocar incisions that are clean, dry and intact in the upper abdomen. Extremities: no edema noted. FHT: 154 bpm Laboratory Tests Test 05/26/21 17:28 05/27/21 04:10 Range/Units Glucometer 74 70-110 MG/DL White Blood Count 9.1 4.3-11.0 10^3/uL Red Blood Count 2.25 L 3.80-5.11 10^6/uL Hemoglobin 6.9 *L 11.5-16.0 g/dL Hematocrit 20 *L 35-52 % Mean Corpuscular Volume 90 80-99 fL Mean Corpuscular Hemoglobin 31 25-34 pg Mean Corpuscular Hemoglobin Concent 34 32-36 g/dL Red Cell Distribution Width 13.0 10.0-14.5 % Platelet Count 164 130-400 10^3/uL Mean Platelet Volume 10.9 9.0-12.2 fL Immature Granulocyte % (Auto) 0 % Neutrophils (%) (Auto) 70 42-75 % Lymphocytes (%) (Auto) 21 12-44 % Monocytes (%) (Auto) 7 0-12 % Eosinophils (%) (Auto) 1 0-10 % Basophils (%) (Auto) 0 0-10 % Neutrophils # (Auto) 6.4 1.8-7.8 10^3/uL Lymphocytes # (Auto) 1.9 1.0-4.0 10^3/uL Monocytes # (Auto) 0.6 0.0-1.0 10^3/uL Eosinophils # (Auto) 0.1 0.0-0.3 10^3/uL Basophils # (Auto) 0.0 0.0-0.1 10^3/uL Immature Granulocyte # (Auto) 0.0 0.0-0.1 10^3/uL Sodium Level 135 135-145 MMOL/L Potassium Level 4.0 3.6-5.0 MMOL/L Chloride Level 110 H 98-107 MMOL/L Carbon Dioxide Level 18 L 21-32 MMOL/L Anion Gap 7 5-14 MMOL/L Blood Urea Nitrogen 3 L 7-18 MG/DL Creatinine 0.49 L 0.60-1.30 MG/DL Estimat Glomerular Filtration Rate 129 BUN/Creatinine Ratio 6 Glucose Level 83 70-105 MG/DL Calcium Level 7.4 L 8.5-10.1 MG/DL Corrected Calcium 8.4 L 8.5-10.1 MG/DL Phosphorus Level 2.0 L 2.3-4.7 MG/DL Magnesium Level 2.1 1.6-2.4 MG/DL Total Bilirubin 0.6 0.1-1.0 MG/DL Aspartate Amino Transf (AST/SGOT) 16 5-34 U/L Alanine Aminotransferase (ALT/SGPT) 85 H 0-55 U/L Alkaline Phosphatase 112 40-136 U/L Total Protein 4.9 L 6.4-8.2 GM/DL Albumin 2.7 L 3.2-4.5 GM/DL Assessment/Plan: Jacquelin Montero is a 30 yo female at 14 wga, POD#3 s/p lap cholecystectomy admitted following a syncopal episode at home due to acute blood loss anemia. She is currently stable, recovering in the ICU. # Intrauterine (14 weeks gestation): Will continue daily FHT. Daily PNV. # POD#3 s/p lap cholecystectomy: Routine postoperative care guided by general surgery. # Acute on chronic anemia: Pt has received 2 units of pRBC due to a hgb of 6.2 during her hospital course. Previous Hgb on 05/20 was 11.2 and 05/21 was 9.6, so likely some iron deficiency but unexplained drop after surgery. 05/26: Hgb 7.3 --> 2 AM: 6.9, suspicious for continual bleeding but unknown source. May have some iron deficiency preexisting, but does not explain drop. does not explain drop. - Transfuse per recommendations from general surgery. # UA - negative cultures. We will continue to follow until the patient is discharged from the hospital. Thank you for this consult. Focused Exam Lactate Level 05/24/21 23:59: Lactic Acid Level 4.12*H 05/25/21 02:12: Lactic Acid Level 3.17*H 05/25/21 07:40: Lactic Acid Level 0.89 Respiratory: Lungs Clear, Normal Breath Sounds, No Accessory Muscle Use, No Respiratory Distress Cardiovascular: Regular Rate, Rhythm, No Edema Skin: normal color, warm/dry Diagnosis/Problems Diagnosis/Problems (1) Intrauterine (2) 14 weeks gestation of MOISES NEWBY MD May 27, 2021 10:49
[2021-05-27 11:05] VITALS: BP 99/58
--- NOTE | 2021-05-27 11:23 | Diagnostic Imaging Report ---
PROCEDURE: US Abdomen, limited. TECHNIQUE: Multiple realtime grayscale images were obtained over the abdomen in various projections. INDICATION: Septic shock and anemia. Patient underwent cholecystectomy on 05/22/2021. The patient has had decreasing hemoglobin. Evaluation of all 4 quadrants in the gallbladder fossa was performed. A moderate amount of free fluid in the right lower quadrant is noted, calculated to be approximately 181 mL. There is some complexity to the fluid. Approximately 60 mL fluid in the left lower quadrant is noted which also shows some complexity. Small amount of free fluid in the left upper quadrant is seen. Trace fluid in the gallbladder fossa is noted. IMPRESSION: There is some free fluid in the abdomen with some complexity which could represent hemoperitoneum. The greatest amount of fluid is located in the right lower quadrant. Dictated by: Dictated on workstation # [id number]
--- NOTE | 2021-05-27 13:11 | Tele-ICU Progress Note ---
Subjective Date Seen by a Provider: May 27, 2021 Time Seen by a Provider: 10:19 Sepsis Event Evaluation Height, Weight, BMI Height: 5'3.00" Weight: 179lbs. 2.0oz. [id number]; 27.07 BMI Method: Focused Exam Lactate Level 05/24/21 23:59: Lactic Acid Level 4.12*H 05/25/21 02:12: Lactic Acid Level 3.17*H 05/25/21 07:40: Lactic Acid Level 0.89 Exam Exam Patient acknowledged, consented, and participated in this virtual visit which was conducted using real time audio/video Vital Signs Date Time Temp Pulse Resp B/P (MAP) Pulse Ox O2 Delivery O2 Flow Rate FiO2 05/27/21 12:54 Room Air 05/27/21 11:31 36.7 05/27/21 11:05 37.2 84 26 99/58 99 Room Air 05/27/21 11:00 83 102/63 100 Room Air 05/27/21 10:00 100 23 102/62 98 Room Air 05/27/21 09:00 86 25 101/57 99 Room Air 05/27/21 08:11 37.2 87 22 113/70 100 Room Air 05/27/21 08:10 Room Air 05/27/21 08:00 90 20 112/71 91 Room Air 05/27/21 08:00 36.6 05/27/21 07:52 37.0 93 20 108/63 100 Room Air 05/27/21 07:00 92 05/27/21 07:00 86 26 108/63 100 Room Air 05/27/21 06:00 87 28 95/54 96 Room Air 05/27/21 05:00 84 22 88/55 99 Room Air 05/27/21 04:00 82 23 79/43 100 Room Air 05/27/21 04:00 Room Air 05/27/21 03:00 69 20 86/39 100 Room Air 05/27/21 02:00 77 20 85/43 99 Room Air 05/27/21 01:00 75 05/27/21 01:00 75 20 86/44 99 Room Air 05/27/21 00:13 36.5 05/27/21 00:00 Room Air 05/27/21 00:00 88 22 98/51 99 Room Air 05/26/21 23:00 96 24 100/54 100 Room Air 05/26/21 22:00 103 20 100/61 96 Room Air 05/26/21 21:00 91 30 102/61 100 Room Air 05/26/21 20:00 93 28 94/55 99 Room Air 05/26/21 20:00 Room Air 05/26/21 19:00 116 05/26/21 19:00 116 20 104/55 96 Room Air 05/26/21 18:00 105 31 97/54 100 Room Air 05/26/21 17:00 102 20 100/61 99 Room Air 05/26/21 16:26 Room Air 05/26/21 16:00 112 13 105/46 100 Room Air 05/26/21 15:38 37.2 05/26/21 15:00 105 20 102/62 99 Room Air 05/26/21 14:00 92 24 105/57 98 Room Air I & O 05/27/21 07:00 Intake Total 3025 ml Output Total 5475 ml Balance -2450 ml Height & Weight Height: 5'3.00" Weight: 179lbs. 2.0oz. 81.732396hs; 27.07 BMI Method: General Appearance: No Apparent Distress (was experiencing pain during encounter), WD/WN HEENT: PERRL/EOMI, Moist Mucous Membranes; No Scleral Icterus (L), No Scleral Icterus (R) Neck: Normal Inspection, Supple Respiratory: Lungs Clear, Normal Breath Sounds, No Accessory Muscle Use, No Respiratory Distress Cardiovascular: Regular Rate, Rhythm, No Edema Capillary Refill: Less Than 3 Seconds Peripheral Pulses: 2+ Radial Pulses (R), 2+ Radial Pulses (L) Gastrointestinal: soft, distended (Improved), tenderness (most tender at supraumbilical incision, ), other (Did not experience pain with movement of bed) Extremity: No Calf Tenderness Neurologic/Psychiatric: Alert, Oriented x3 Skin: Normal Color, Warm/Dry Lymphatic: No Adenopathy (supraclavicular or posterior cervical) Results Lab Laboratory Tests 05/25/21 16:13 05/26/21 04:30 05/27/21 04:10 Assessment/Plan Assessment/Plan (Tele-ICU Physician , Progress Note ) Available chart/ vitals / labs / Images reviewed Video assessment done using teleICU camera, rest of exam as per RN Discussed with RN , EXAM PER RN Events overnight : Afebrile FiO2 - ra I/O = neg 3L Drips: Pressors: , hemodynamically stable Consultants: Hospital course: A/P POD day 2 s/p LS cholecystectomy. - as per sx - on zosyn , cx negative septic shock, ( less likley hemorrhagic , no PE by VQ - not on pressors - improved , resolved Anemia - ? delutional vs bleeding ( no sourse by exam - as per sx - Hb dropped again - with UO of 6 L and negative volume balanse 3L - will transfuse 1 more U prbc and check US andomen - ? hematoma - no suspicios for GIB - monitor , keep on pepcid Pregnancyy , 14 + week gestation - stable, OB MD follows syncopal episode at home x2 - no PE by VQ VTE Prophylaxis: scd Stress Ulcer Prophylaxis: h2bl Plans in collaboration with bedside consultants and IM MDs. Discussed with RN to reach out if any questions or concerns A total of 31 minutes of critical care time was devoted to this patient today, required to treat and/or prevent further deterioration of critical care condition ( as above) . BARRERA CARTER MD May 27, 2021 13:11
[2021-05-27 13:50] LABS: HEMOGLOBIN 8.7 g/dL (11.5-16.0)
--- NOTE | 2021-05-27 15:00 | Physical Therapy Evaluation ---
PT Evaluation-General Medical Diagnosis Admission Date May 25, 2021 at 01:30 Medical Diagnosis: syncope Onset Date: May 25, 2021 Therapy Diagnosis Therapy Diagnosis: impaired mobility Height/Weight Height (Feet): 5 Height (Inches): 3.00 Weight (Pounds): 179 Weight (Ounces): 2.0 Precautions Precautions/Isolations: Fall Prevention, Standard Precautions Referral Physician: Joshua Reason for Referral: Evaluation/Treatment Social History Home: Single Level Entry Into Home: Stairs With Railing PT Steps Into Home: 2 Prior Prior Level of Function SCALE: Activities may be completed with or without assistive devices. 1-Mamjrdfffj-ogzmafz completes the activity by him/herself with no assistance from a helper. 5-Set-up or Clean-up Assistance-helper sets up or cleans up; patient completes activity. [place] assists only prior to or following the activity. 4-Supervision or Touching Assistance-helper provides verbal cues and/or touching/steadying and/or contact guard assistance as patient completes activity. Assistance may be provided throughout the activity or intermittently. 3-Partial/Moderate Assistance-helper does LESS THAN HALF the effort. [place] lifts, holds or supports trunk or limbs, but provides less than half the effort. 2-Substantial/Maximal Assistance-helper does MORE THAN HALF the effort. [place] lifts or holds trunk or limbs and provides more than half the effort. 8-Xydmwfbdn-capzli does ALL the effort. Patient does none of the effort to complete the activity. Or, the assistance of 2 or more helpers is required for the patient to complete the activity. If activity was not attempted, code reason: 7-Patient Refused. 9-Not Applicable-not attempted and the patient did not perform the activity before the current illness, exacerbation or injury. 10-Not Attempted due to Environmental Limitations-(lack of equipment, weather restraints, etc.). 88-Not Attempted due to Medical Conditions or Safety Concerns. Bed Mobility: 6 Transfers (B,C,W/C): 6 Gait: 6 Stairs: 6 Indoor Mobility (Ambulation): Independent Stairs: Independent PT Evaluation-Current Subjective Patient in bed pre tx, agrees to PT, has no pain at rest. Pt/Family Goals to be independent at home Objective Patient Orientation: Person, Place, Situation Attachments: Oconnell Catheter, IV ROM/Strength ROM Lower Extremities WNL Strength Lower Extremities grossly 4+/5 BLE Sensory Vision: Wears Glasses Hearing: Functional Sensation Right Lower Extremit: Intact Sensation Left Lower Extremity: Intact Transfers Roll Left to Right (QC): 6 Sit to Lying (QC): 6 Lying to Sitting/Side of Bed(Q: 6 Sit to Stand (QC): 6 Gait Does the Patient Walk?: Yes Mode of Locomotion: Walk Anticipated Mode of Locomotion: Walk Walk 10 feet (QC): 4 Walk 50 ft with 2 Turns(QC): 4 Distance: 50' Gait Assistive Device: None Comments/Gait Description Patient ambulated 50' without an assistive device but pushing her own IV pole with SBA, patient had no unsteadiness but says her legs feel really weak and like they might "collapse" or buckle. Balance Sitting Static: Normal Sitting Dynamic: Normal Standing Static: Good Standing Dynamic: Good Treatment BLE supine exercises x20 (AP, HS, QS) Assessment/Needs Patient in bed post tx with nurse call, phone, tray, all needs met. Rehab Potential: Good PT Care Home Goals Care Home Goals PT Truer Pinion And Wheel Goals Time Frame: Jun 03, 2021 Roll Left & Right (QC): 6 Sit to Lying (QC): 6 Lying-Sitting on Side/Bed(QC): 6 Sit to Stand (QC): 6 Chair/Rln-yi-Oylbg Xfer(QC): 6 Walk 10 feet (QC): 6 Walk 50ft with 2 Turns (QC): 6 Walk 150 ft (QC): 6 PT Plan Problem List Problem List: Activity Tolerance, Functional Strength, Safety, Balance, Gait, Transfer Treatment/Plan Treatment Plan: Continue Plan of Care Treatment Plan: Education, Functional Activity [place], Functional Strength, Gait, Safety, Therapeutic Exercise, Transfers Treatment Duration: Jun 03, 2021 Frequency: 6 times per week Estimated Hrs Per Day: .25 hour per day Patient and/or Family Agrees t: Yes Safety Risks/Education Patient Education: Gait Training, Transfer Techniques, Correct Positioning, Safety Issues Teaching Recipient: Patient Teaching Methods: Demonstration, Discussion Response to Teaching: Reinforcement Needed Discharge Recommendations Plan Patient will perform bed mobility and transfer training, balance and endurance t raining, functional strengthening, stair training, gait training, and education, to improve functional mobility and independence at home. Therapy Discharge Recommendati: Home & Family Time/GCodes Time In: 1440 Time Out: 1453 Total Billed Treatment Time: 13 Total Billed Treatment 1 visit EVL CAROL GUERRERO PT May 27, 2021 15:00
[2021-05-28 05:41] LABS: BASOPHILS % (AUTO) 0 % (0-10); EOSINOPHILS # (AUTO) 0.2 10^3/uL (0.0-0.3); EOSINOPHILS % (AUTO) 2 % (0-10); HEMATOCRIT 24 % (35-52); HEMOGLOBIN 8.2 g/dL (11.5-16.0); LYMPHOCYTES # (AUTO) 1.5 10^3/uL (1.0-4.0); LYMPHOCYTES % (AUTO) 17 % (12-44); MEAN CORPUSCULAR HEMOGLOBIN 30 pg (25-34); MEAN CORPUSCULAR HGB CONC 34 g/dL (32-36); MEAN CORPUSCULAR VOLUME 88 fL (80-99); MEAN PLATELET VOLUME 10.4 fL (9.0-12.2); MONOCYTES # (AUTO) 0.5 10^3/uL (0.0-1.0); MONOCYTES % (AUTO) 6 % (0-12); NEUTROPHILS # (AUTO) 6.7 10^3/uL (1.8-7.8); NEUTROPHILS % (AUTO) 75 % (42-75); PLATELET COUNT 182 10^3/uL (130-400); WHITE BLOOD COUNT 8.9 10^3/uL (4.3-11.0)
[2021-05-28] MEDS: PIPERACILLIN SODIUM/TAZOBACTAM 4.5 GM in NS (IVPB) 100 ML IV SCH (06:00)
[2021-05-28] MEDS: HYDROcodone/APAP 5 MG/325 MG (LORTAB) TAB PO PRN (06:02)
[2021-05-28 06:12] LABS: ALBUMIN 2.8 GM/DL (3.2-4.5)
[2021-05-28 06:13] LABS: POTASSIUM 3.4 MMOL/L (3.6-5.0)
[2021-05-28 06:14] LABS: CALCIUM 7.9 MG/DL (8.5-10.1)
[2021-05-28 06:15] LABS: TOTAL PROTEIN 5.4 GM/DL (6.4-8.2)
[2021-05-28 06:19] LABS: CREATININE SERUM 0.52 MG/DL (0.60-1.30)
--- NOTE | 2021-05-28 07:07 | Progress Note - Surgery ---
[facility] 05/28/21 0707: Subjective Date Seen by a Provider: May 28, 2021 Time Seen by a Provider: 07:06 Subjective/Events-last exam POD4, S/P Lap awa Patient transferred to floor yesterday. Total blood transfusions: 3, Hgb after transfusion went from 6.9 to 8.7 Current hemoglobin at 8.2 Patient sitting up in bed today and appeared to be doing much pain Pain medications reduce pain to a 2-3 on a scale of 10. Continues to pass gas Tolerating diet Review of Systems General: No Chills, No Other (fevers) Pulmonary: No Dyspnea, No Cough Cardiovascular: No: Chest Pain, Palpitations Gastrointestinal: Abdominal Pain; No: Nausea, Vomiting Focused Exam Lactate Level 05/25/21 07:40: Lactic Acid Level 0.89 Objective Exam Vital Signs Date Time Temp Pulse Resp B/P (MAP) Pulse Ox O2 Delivery O2 Flow Rate FiO2 05/28/21 06:32 36.3 05/28/21 06:02 36.3 05/28/21 04:33 36.3 77 18 105/79 97 Room Air 05/28/21 00:30 36.2 81 20 113/60 98 Room Air 05/27/21 19:50 Room Air 05/27/21 19:32 36.1 85 18 104/72 100 Room Air 05/27/21 16:13 Room Air 0.00 05/27/21 16:00 35.7 80 20 100/63 99 Room Air 05/27/21 14:00 102 15 110/62 100 Room Air 05/27/21 13:00 79 29 107/68 100 Room Air 05/27/21 13:00 79 05/27/21 12:54 Room Air 05/27/21 12:00 81 23 105/65 100 Room Air 05/27/21 11:31 36.7 05/27/21 11:05 37.2 84 26 99/58 99 Room Air 05/27/21 11:00 83 102/63 100 Room Air 05/27/21 10:00 100 23 102/62 98 Room Air 05/27/21 09:00 86 25 101/57 99 Room Air 05/27/21 08:11 37.2 87 22 113/70 100 Room Air 05/27/21 08:10 Room Air 05/27/21 08:00 90 20 112/71 91 Room Air 05/27/21 08:00 36.6 05/27/21 07:52 37.0 93 20 108/63 100 Room Air I & O 05/28/21 07:00 Intake Total 3790 ml Output Total 3500 ml Balance 290 ml Capillary Refill : Less Than 3 Seconds General Appearance: No Apparent Distress (Continues to improve), WD/WN HEENT: PERRL/EOMI, Moist Mucous Membranes; No Scleral Icterus (L), No Scleral Icterus (R) Neck: Normal Inspection, Supple Respiratory: Lungs Clear, Normal Breath Sounds, No Accessory Muscle Use, No Respiratory Distress Cardiovascular: Regular Rate, Rhythm, No Murmur Peripheral Pulses: 2+ Radial Pulses (R), 2+ Radial Pulses (L) Gastrointestinal: soft, distended (Improved), tenderness (most tender at supraumbilical incision ), other (Did not experience pain with movement of bed) Extremity: Non Tender (LE bilaterally), No Calf Tenderness Neurologic/Psychiatric: Alert, Oriented x3 Skin: Normal Color, Warm/Dry Lymphatic: No Adenopathy (supraclavicular or posterior cervical) Results Lab Laboratory Tests 05/27/21 11:07: Glucometer 86 05/27/21 13:40: Hemoglobin 8.7#L, Hematocrit 26L 05/28/21 05:33: Hemoglobin 8.2L, Hematocrit 24L, White Blood Count 8.9, Red Blood Count 2.75L, Mean Corpuscular Volume 88, Mean Corpuscular Hemoglobin 30, Mean Corpuscular Hemoglobin Concent 34, Red Cell Distribution Width 13.2, Platelet Count 182, Mean Platelet Volume 10.4, Immature Granulocyte % (Auto) 0, Neutrophils (%) (Aut o) 75, Lymphocytes (%) (Auto) 17, Monocytes (%) (Auto) 6, Eosinophils (%) (Auto) 2, Basophils (%) (Auto) 0, Neutrophils # (Auto) 6.7, Lymphocytes # (Auto) 1.5, Monocytes # (Auto) 0.5, Eosinophils # (Auto) 0.2, Basophils # (Auto) 0.0, Immature Granulocyte # (Auto) 0.0, Sodium Level 135, Potassium Level 3.4L, Chloride Level 107, Carbon Dioxide Level 20L, Anion Gap 8, Blood Urea Nitrogen 4L, Creatinine 0.52L, Estimat Glomerular Filtration Rate 127, BUN/Creatinine Ratio 8, Glucose Level 88, Calcium Level 7.9L, Corrected Calcium 8.9, Total Bilirubin 1.0, Aspartate Amino Transf (AST/SGOT) 15, Alanine Aminotransferase (ALT/SGPT) 75H, Alkaline Phosphatase 162H, Total Protein 5.4L, Albumin 2.8L Microbiology 05/25/21 MRSA Screen - Final, Complete MRSA not isolated 05/25/21 Urine Culture - Final, Complete NO GROWTH 05/25/21 Blood Culture - Preliminary, Resulted No growth Radiology [facility], [place] NAME: [facility] REC#: [id number] PT STATUS: ADM IN : 1990 PHYSICIAN: BARRERA CARTER MD ADMIT DATE: 05/25/21/ICU Signed Date of Exam:05/27/21 US ABDOMEN LIMITED [id number] PROCEDURE: US Abdomen, limited. TECHNIQUE: Multiple realtime grayscale images were obtained over the abdomen in various projections. INDICATION: Septic shock and anemia. Patient underwent cholecystectomy on 05/22/2021. The patient has had decreasing hemoglobin. Evaluation of all 4 quadrants in the gallbladder fossa was performed. A moderate amount of free fluid in the right lower quadrant is noted, calculated to be approximately 181 mL. There is some complexity to the fluid. Approximately 60 mL fluid in the left lower quadrant is noted which also shows some complexity. Small amount of free fluid in the left upper quadrant is seen. Trace fluid in the gallbladder fossa is noted. IMPRESSION: There is some free fluid in the abdomen with some complexity which could represent hemoperitoneum. The greatest amount of fluid is located in the right lower quadrant. Dictated by: Dictated on workstation # [id number] Dict: 05/27/21 1118 Trans: 05/27/21 1524 [id number] Interpreted by: ABIGAIL PURCELL MD Electronically signed by: ABIGAIL PURCELL MD 05/27/21 1524 Assessment/Plan Assessment/Plan Assessment/Plan UTI - 2/3, urine culture showed no growth - Complete full course of IV zosyn then will discontinue Anemia (currently 8.2) - S/P 3 blood transfusions did receive another this am - Continue to monitor with CBC - Ultrasound showed findings similar to previous ultrasound S/P Lap Awa - Encourage Incentive spirometer - PT/OT consult, encourage OOB activity as tolerated - Continue current pain regimen as needed - DVT prophylaxis with SCDs - Full diet and currently 14 weeks 3/7 days - Appreciate OBGYN - Continue FHT every as recommended by OBESPERANZAN VANIA DALAL DO 05/28/21 1114: Subjective Time Seen by a Provider: 09:58 Subjective/Events-last exam Pt seen and examined, states she is tolerating diet and does not feel weak today. Breathing ok. Review of Systems General: No Chills, No Other (fevers) Pulmonary: No Dyspnea, No Cough Cardiovascular: No: Chest Pain, Palpitations Gastrointestinal: Abdominal Pain; No: Nausea, Vomiting Objective Exam General Appearance: No Apparent Distress (Continues to improve), WD/WN HEENT: PERRL/EOMI, Moist Mucous Membranes Respiratory: Lungs Clear, Normal Breath Sounds, No Accessory Muscle Use, No Respiratory Distress Cardiovascular: Regular Rate, Rhythm, No Murmur Gastrointestinal: soft, distended (Improved), tenderness (most tender at supraumbilical incision and some right sided), other Neurologic/Psychiatric: Alert, Oriented x3 Assessment/Plan Assessment/Plan Assessment/Plan UTI - culture negative will not send home with ABX Anemia (currently 8.2) - basically stable - Will D/C pt home S/P Lap Awa - Encourage Incentive spirometer and ambulation and currently 14 weeks 3/7 days - F/U with JEWELRY ESTIMATOR as outpt Supervisory-Addendum Brief Verification & Attestation Participated in pt care: history, MDM, physical Personally performed: exam, history, MDM, supervision of care Care discussed with: Medical Student Procedures: n/a Verification and Attestation of Medical Student E/M Service A medical student performed and documented this service. I then reviewed and verified all information documented by the medical student and made modifications to such information, when appropriate. I personally performed a physical exam, medical decision making and then discussed any differences bet ween the notes and made revisions as necessary to create one note. Vania Dalal , 05/28/21 , 11:14 [facility] May 28, 2021 07:07 VANIA DALAL DO May 28, 2021 11:14
[2021-05-28] MEDS: FAMOTIDINE 20MG/2ML IV (PEPCID) IVP SCH (08:14)
--- NOTE | 2021-05-28 08:59 | Physical Therapy Progress Note ---
Therapy Progress Note Patient presented sitting in bed and agreed to ambulate with physical therapy. Patient is independent for all transfers and ambulation. Therapy session was not long enough for billable minutes. Patient will be d/c from physical therapy due to independence of ambulation and transfers. 1 visit CYNTHIA ZAMORA PT May 28, 2021 08:59
--- NOTE | 2021-05-28 11:18 | Discharge Inst-Surgical ---
Discharge Inst-Surgical Depart Medication/Instructions New, Converted or Re-Newed RX: Other (use meds already prescribed) Patient Instructions Follow up Appt: Make appointment for MondayJune 01. [phone] Instructions: No lifting greater than 20 pounds. No strenuous activity. May shower in 24 hours, no tub bath or soaking. Use incentive spirometer at home as directed. No Smoking Symptoms to Report: Appetite Changes, Extremity Discoloration, Numbness/Tingling, Swelling Increased, Bleeding Excessive, Eyesight Changes, Pain Increased, Urine Color Change, Constipation(Persistent), Fever over 101 degree F, Pain/Pressure in chest, Urinating Difficulty, Cough Up/Vomit Blood, Heart Beat Irreg/Pounding, Pain/Pressure in jaw, Cramps in feet or legs, Lightheadedness, Pain/Pressure in shoulder, Diarrhea(Persistent), Memory Changes Suddenly, Questions/Concerns, Weight gain consecutive days, Dizziness/Fainting, Nausea/Vomiting, Shortness of Breath, Weight gain over 2 pounds If questions or concerns contact your physician Or seek help at emergency department. Activity Activity as Tolerated: Yes Diet Discharge Diet: Avoid Fatty Foods, Low Fat/Low Cholesterol If Any Problems/Questions/Issu: Contact Your Physician, Go to Emergency Room Skin/Wound Care Infection Signs and Symptoms: Increased Redness, Foul Odor of Wound, Increased Drainage, Skin Itchy or Has a Rash, Increased Swelling, Temperature Above 101 F Bathing Instructions: VANIA Grullon DO May 28, 2021 11:18
--- NOTE | 2021-05-28 11:52 | Progress Note ---
Standard Progress Note Progress Notes/Assess & Plan Date Seen by a Provider: May 28, 2021 Time Seen by a Provider: 08:30 Progress/Assessment & Plan Subjective: Patient is doing well with no complaints this morning. She denies fever, chills, nausea or vomiting. Oconnell in place. She is ambulating in the room and passing flatus. She is tolerating a regular diet. She denies feeling movement, which is normal at this gestational age. She denies vaginal bleeding or leakage of fluid. Objective: Vital Sign - Last 24 Hours 05/27/21 05/27/21 05/27/21 05/27/21 12:00 12:54 13:00 13:00 Pulse 81 79 79 Resp 23 29 B/P (MAP) 105/65 107/68 Pulse Ox 100 100 O2 Delivery Room Air Room Air Room Air 05/27/21 05/27/21 05/27/21 05/27/21 14:00 16:00 16:13 19:32 Temp 35.7 36.1 Pulse 102 80 85 Resp 15 20 18 B/P (MAP) 110/62 100/63 104/72 Pulse Ox 100 99 100 O2 Delivery Room Air Room Air Room Air Room Air O2 Flow Rate 0.00 05/27/21 05/28/21 05/28/21 05/28/21 19:50 00:30 04:33 06:02 Temp 36.2 36.3 36.3 Pulse 81 77 Resp 20 18 B/P (MAP) 113/60 105/79 Pulse Ox 98 97 O2 Delivery Room Air Room Air Room Air 05/28/21 05/28/21 05/28/21 06:32 08:00 09:00 Temp 36.3 35.8 Pulse 88 Resp 18 B/P (MAP) 112/58 Pulse Ox 96 O2 Delivery Room Air Room Air Intake and Output 05/27/21 05/27/21 05/28/21 15:00 23:00 07:00 Intake Total 1150 ml 1740 ml 900 ml Output Total 1700 ml 1800 ml Balance -550 ml -60 ml 900 ml Physical Examination: Please see below. Gen: NAD CV: RRR Resp: CTAB. On RA Abdomen: Gravid uterus. Soft, non-distended abdomen this morning. Negative rebound. Appropriately tender to palpation. 3 trocar incisions that are clean, dry and intact in the upper abdomen. Extremities: no edema noted. FHT: 145 bpm Laboratory Tests Test 05/27/21 13:40 05/28/21 05:33 Range/Units Hemoglobin 8.7 #L 8.2 L 11.5-16.0 g/dL Hematocrit 26 L 24 L 35-52 % White Blood Count 8.9 4.3-11.0 10^3/uL Red Blood Count 2.75 L 3.80-5.11 10^6/uL Mean Corpuscular Volume 88 80-99 fL Mean Corpuscular Hemoglobin 30 25-34 pg Mean Corpuscular Hemoglobin Concent 34 32-36 g/dL Red Cell Distribution Width 13.2 10.0-14.5 % Platelet Count 182 130-400 10^3/uL Mean Platelet Volume 10.4 9.0-12.2 fL Immature Granulocyte % (Auto) 0 % Neutrophils (%) (Auto) 75 42-75 % Lymphocytes (%) (Auto) 17 12-44 % Monocytes (%) (Auto) 6 0-12 % Eosinophils (%) (Auto) 2 0-10 % Basophils (%) (Auto) 0 0-10 % Neutrophils # (Auto) 6.7 1.8-7.8 10^3/uL Lymphocytes # (Auto) 1.5 1.0-4.0 10^3/uL Monocytes # (Auto) 0.5 0.0-1.0 10^3/uL Eosinophils # (Auto) 0.2 0.0-0.3 10^3/uL Basophils # (Auto) 0.0 0.0-0.1 10^3/uL Immature Granulocyte # (Auto) 0.0 0.0-0.1 10^3/uL Sodium Level 135 135-145 MMOL/L Potassium Level 3.4 L 3.6-5.0 MMOL/L Chloride Level 107 98-107 MMOL/L Carbon Dioxide Level 20 L 21-32 MMOL/L Anion Gap 8 5-14 MMOL/L Blood Urea Nitrogen 4 L 7-18 MG/DL Creatinine 0.52 L 0.60-1.30 MG/DL Estimat Glomerular Filtration Rate 127 BUN/Creatinine Ratio 8 Glucose Level 88 70-105 MG/DL Calcium Level 7.9 L 8.5-10.1 MG/DL Corrected Calcium 8.9 8.5-10.1 MG/DL Total Bilirubin 1.0 0.1-1.0 MG/DL Aspartate Amino Transf (AST/SGOT) 15 5-34 U/L Alanine Aminotransferase (ALT/SGPT) 75 H 0-55 U/L Alkaline Phosphatase 162 H 40-136 U/L Total Protein 5.4 L 6.4-8.2 GM/DL Albumin 2.8 L 3.2-4.5 GM/DL Assessment/Plan: Jacquelin Montero is a 30 yo female at 14w2d, POD#4 s/p lap cholecystectomy admitted following a syncopal episode at home due to acute blood loss anemia. She is stable. # Intrauterine (14 weeks gestation): Will continue daily FHT. Daily PNV. # POD#3 s/p lap cholecystectomy: Routine postoperative care guided by general surgery. # Acute on chronic anemia: Pt has received 2 units of pRBC due to a hgb of 6.2 during her hospital course. Previous Hgb on 05/20 was 11.2 and 05/21 was 9.6, so likely some iron deficiency but unexplained drop after surgery. 2: Hgb 7.3 --> 2/3 AM: 6.9 --> s/p 1u pRBC --> 8.7 --> 2/4 AM: 8.2. May have some iron deficiency preexisting, but does not explain drop. does not explain drop. # UA - negative cultures. IV Zosyn ordered. We will continue to follow until the patient is discharged from the hospital. Thank you for this consult. Diagnosis/Problems Diagnosis/Problems (1) Intrauterine (2) 14 weeks gestation of MOISES NEWBY MD May 28, 2021 11:52
[2021-05-28 13:10] VITALS: BP 118/72
--- NOTE | 2021-05-28 13:29 | Anesthesia-General Post-Op ---
General Significant Intra-Op Events Notes Post op completed 05/21/21 at 1000 Patient Condition Mental Status/LOC: Same as Preop Cardiovascular: Satisfactory Nausea/Vomiting: Absent Respiratory: Satisfactory Pain: Controlled Complications: Absent Post Op Complications Complications None Follow Up Care/Instructions Patient Instructions None needed. Anesthesia/Patient Condition Patient Condition Patient is doing well, no complaints, stable vital signs, no apparent adverse anesthesia problems. No complications reported per nursing. D/C home per [facility] [place] Criteria: Yes WILLY LUONG CRNA May 28, 2021 13:29
== END 2021-05-28 13:00 | disposition home or self-care (01) | DRG 831 ==
LOC: EDUNIT# 23:37 → ER 23:38 → ICU 05-25 01:30 → EDLOC 05-25 01:30 → 4TH 05-27 15:36
PROVIDERS: ADMIT Surgery; ATTEND Surgery
DX: O98.812 Other maternal infectious and parasitic diseases complicating pregnancy, second trimester (principal); A41.9 Sepsis, unspecified organism; R65.21 Severe sepsis with septic shock; O23.42 Unspecified infection of urinary tract in pregnancy, second trimester; N39.0 Urinary tract infection, site not specified; D62 Acute posthemorrhagic anemia; Z3A.14 14 weeks gestation of pregnancy; Z90.49 Acquired absence of other specified parts of digestive tract; O99.012 Anemia complicating pregnancy, second trimester; R55 Syncope and collapse
CPT/HCPCS: 36415; 51702; 76700; 76705; 80053; 81000; 82947; 83605; 83735; 83880; 84100; 84145; 84484; 85007; 85014; 85018; 85025; 85027; 86141; 86850; 86900; 86901; 86920; 87040; 87081; 87088; 93005

== ENCOUNTER → 2021-07-09 | Outpatient (CLI) | payer BC ==
--- NOTE | 2021-07-10 08:23 | Diagnostic Imaging Report ---
INDICATION: Anatomy scan TECHNIQUE: Multiple real-time grayscale images were obtained over the gravid uterus. COMPARISON: None. FINDINGS: There is a single live intrauterine gestation currently measuring 20 weeks 1 day. Visualized anatomy unremarkable. Amniotic fluid index within normal limits. Placenta posterior with no previa seen. Cardiac activity 144 bpm. Fetus is currently breech in positioning. IMPRESSION: 1. Single live intrauterine gestation currently measuring 20 weeks 1 day with estimated date of delivery of 11/25/2021. No anatomy abnormalities appreciated. Biometrical measurements are as follows: Biparietal 4.35 cm, age 19 weeks 2 days. Head circumference 17.50 cm, age 20 weeks 1 days. Abdominal circumference 14.53 cm, age 19 weeks 6 days. Femur length 3.41 cm, age 20 weeks 6 days. Sonographic estimate age: 20 weeks 1 days. Sonographic estimated date of delivery: 11/25/21. Estimated Weight: 338 gm (+/- 49 gm). LMP percentile: 20%. heart rate: 144 beats per minute. number: 1 of 1. IMPRESSION: Dictated by: Dictated on workstation # [id number]
== END ==
LOC: RAD 15:15
PROVIDERS: ATTEND Obstetrics & Gynecology
DX: Z36.9 Encounter for antenatal screening, unspecified (principal)
CPT/HCPCS: 76805